=== PATIENT | female | born 1995 | race Caucasian/White ===

== ENCOUNTER 2017-05-15 21:55 | Inpatient (IN) | payer OTHER ==
[2017-05-15 22:08] VITALS: BMI 16.9
--- NOTE | 2017-05-15 22:17 | PDOC ---
History of Present Illness - General Chief Complaint: Pain, Acute Stated Complaint: STOMACH PAIN TO BACK WITH NAUSEA Time Seen by Provider: 05/15/17 22:17 History Source: Patient Exam Limitations: No Limitations - History of Present Illness Initial Comments: 05/15/17 23:01 22 yo female with on again off again stomach pains, spent a week in bed because of this, seemed to get better and now today she is hurting again, feels like she has a knife in her stomach. Timing/Duration: getting worse, changing over time, intermittent, other ( Several Weeks) Severity: mild Modifying Factors: worse with: cold therapy, eating, immobilization, medication , movement, rest, other Associated Symptoms: denies: denies symptoms, chest pain, cough, diaphoresis, fever/chills, headaches, loss of appetite, malaise, nausea/vomiting, rash, seizure, shortness of breath, syncope, weakness, other Past History - Past Medical History Allergies/Adverse Reactions: Allergies Allergy/AdvReac Type Severity Reaction Status Date / Time No Known Allergies Allergy Unverified 05/15/17 21:58 Home Medications: Ambulatory Orders NK [No Known Home Medication] 05/15/17 COPD: No Other medical history: DENIES - Suicide/Smoking/Psychosocial Hx Smoking History: Never smoked Information on smoking cessation initiated: No Hx Alcohol Use: No Drug/Substance Use Hx: No Substance Use Type: None Review of Systems - Review of Systems Constitutional: Yes: See HPI HEENTM: No: Symptoms Reported Respiratory: No: Symptoms reported Cardiac (ROS): No: Lightheadedness ABD/GI: Yes: See HPI : No: Symptoms Reported Musculoskeletal: No: Symptoms Reported Integumentary: No: Symptoms Reported Neurological: No: Symptoms reported Psychiatric: No: Anxiety, Depression Endocrine: No: Symptoms Reported Hematologic/Lymphatic: No: Symptoms Reported All Other Systems: Reviewed and Negative *Physical Exam - Vital Signs Last Vital Signs Temp Pulse Resp BP Pulse Ox 98.5 F 50 L 16 92/56 100 05/15/17 21:58 05/15/17 21:58 05/15/17 21:58 05/15/17 21:58 05/15/17 21:58 - Physical Exam Comments: 05/15/17 23:03 Very thin, appears uncomfortable, non-toxic General Appearance: Yes: Nourished, Appropriately Dressed. No: Apparent Distress HEENT: positive: EOMI, PETERSON, Normal ENT Inspection Neck: positive: Supple. negative: Tender Respiratory/Chest: positive: Lungs Clear, Normal Breath Sounds. negative: Chest Tender Cardiovascular: positive: Regular Rhythm, Regular Rate. negative: Murmur Female Pelvic Exam: positive: other (deferred) Gastrointestinal/Abdominal: positive: Normal Bowel Sounds, Flat, Soft. 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 negative: Normal Mood/Affect ED Treatment Course - LABORATORY CBC & Chemistry Diagram: 05/15/17 22:50 05/15/17 22:50 Medical Decision Making - Medical Decision Making 05/16/17 03:18 CT shows pericholecystic fluid but no stones and no GB Wall thickening. US does not shed any additional light on the situation. Will give IV Levaquin and Flagyl and admit for further work up and possible surgical consultation *DC/Admit/Observation/Transfer Diagnosis at time of Disposition: Elevated liver enzymes Abdominal pain Qualifiers: Abdominal location: generalized Qualified Code(s): R10.84 - Generalized abdominal pain Ascites Qualifiers: Ascites type: other type Qualified Code(s): R18.8 - Other ascites - Discharge Dispostion Condition at time of disposition: Fair Admit: Yes - Referrals - Patient Instructions - Post Discharge Activity
[2017-05-15] MEDS ORDERED: ONDANSETRON 4 MG/2 ML VIAL IVPB ONE (22:34)
[2017-05-15] MEDS ORDERED: SODIUM CHLORIDE 1,000 ML IV STA ×2 (22:34→22:36)
[2017-05-15] MEDS ORDERED: KETOROLAC TROMETHAMINE 30 MG/1 ML VIAL IVPUSH ONE (22:34)
[2017-05-15 23:02] LABS: BASO % 1.1 % (0-2.0); EOS % 0.2 % (0-4.5); MCH 29.8 pg (25.7-33.7); MCHC 33.6 g/dl (32.0-36.0); MEAN CELL VOLUME 88.6 fl (80-96); MEAN PLT VOLUME 9.6 fl (7.5-11.1); NEUT % 70.5 % (42.8-82.8); PLATELET COUNT 178 K/MM3 (134-434); RDW 14.8 % (11.6-15.6); WHITE BLOOD COUNT 5.6 K/mm3 (4.0-10.8)
[2017-05-15 23:07] LABS: INR 1.05 (0.82-1.09); PROTHROMBIN TIME (PATIENT) 11.7 SEC (10.2-13.0)
[2017-05-15] MEDS ORDERED: ONDANSETRON 4 MG/2 ML VIAL ONE (23:09)
[2017-05-15] MEDS ORDERED: KETOROLAC TROMETHAMINE 30 MG/1 ML VIAL ONE (23:09)
[2017-05-15 23:15] LABS: ALBUMIN 4.4 g/dl (3.5-5.0); ALK PHOS 125 U/L (32-92); ANION GAP 5 (8-16); CALCIUM 9.7 mg/dl (8.4-10.2); CO2 28 mmol/L (22-28); CREATININE 0.7 mg/dl (0.6-1.3); GLUCOSE,RANDOM 87 mg/dl (74-106); SGOT/AST 224 U/L (10-42); SGPT/ALT 280 U/L (10-40)
[2017-05-16] MEDS ORDERED: LEVOFLOXACIN 750 MG IVPB 750 MG/150 ML BAG IVPB ONE ×2 (03:17→03:24)
[2017-05-16] MEDS ORDERED: METRONIDAZOLE 500 MG PREMIXED 500 MG/100 ML MG IVPB ONE ×2 (03:18→03:24)
[2017-05-16] MEDS ORDERED: SODIUM CHLORIDE 1,000 ML IV STA (03:48)
[2017-05-16] MEDS ORDERED: ONDANSETRON 4 MG/2 ML VIAL IVPUSH ONE (03:48)
[2017-05-16] MEDS ORDERED: morphine CARPU-JECT 4 MG/1 ML DISP.SYRIN IVPUSH ONE (03:48)
[2017-05-16] MEDS ORDERED: ONDANSETRON 4 MG/2 ML VIAL ONE (03:56)
[2017-05-16] MEDS ORDERED: morphine SULFATE 4 MG/ML VIAL ONE (03:56)
[2017-05-16 09:25] LABS: MAGNESIUM 1.8 mg/dL (1.8-2.4); PHOSPHOROUS 3.5 mg/dl (2.5-4.6)
[2017-05-16 09:52] LABS: BASO % 0.7 % (0-2.0); EOS % 0.3 % (0-4.5); MCH 31.2 pg (25.7-33.7); MCHC 34.9 g/dl (32.0-36.0); MEAN CELL VOLUME 89.2 fl (80-96); MEAN PLT VOLUME 10.1 fl (7.5-11.1); NEUT % 54.6 % (42.8-82.8); PLATELET COUNT 156 K/MM3 (134-434); RDW 14.3 % (11.6-15.6); WHITE BLOOD COUNT 4.9 K/mm3 (4.0-10.8)
[2017-05-16] MEDS ORDERED: MAGNESIUM SULFATE 2 GM in SODIUM CHLORIDE 100 ML IVPB ONE (10:02)
--- NOTE | 2017-05-16 10:07 | HP ---
CHIEF COMPLAINT: right upper quadrant abdominal pain PCP: Dr Sargent ([facility]) HISTORY OF PRESENT ILLNESS: patient is a 22 y/o female with no significant past medical history. Patient reports abdominal pain, nausea and vomiting for the past week. Patient was evaluated by her primary care physician, Dr Sargent this week, hepatitis profile was negative as per patient. She was diagnosed with gastroenteritis. Patient reports attempting a clear liquid diet, however, nausea and vomiting worsened within the past 24 hours as result she sought evaluation in the emergency department. ER course was notable for: (1) ultrasound of abdomen: trace ascites (2) ct scan of abdomen small amount of ascities, heterogenous liver may be related to ascities (3) ast/alt 224/280 Recent Travel: none PAST MEDICAL HISTORY: none PAST SURGICAL HISTORY: none Social History: steno typist art history major Smoking: none Alcohol:none Drugs: none Family History: mother: gallstones, cholestectomy, alive and well father: alive and well sisters (2) migraine headaches Allergies No Known Allergies Allergy (Unverified 05/15/17 21:58) HOME MEDICATIONS: Home Medications Medication Instructions Recorded NK [No Known Home Medication] 05/15/17 REVIEW OF SYSTEMS CONSTITUTIONAL: Absent: fever, chills, diaphoresis, generalized weakness, malaise, loss of appetite, weight change HEENT: Absent: rhinorrhea, nasal congestion, throat pain, throat swelling, difficulty swallowing, mouth swelling, ear pain, eye pain, visual changes CARDIOVASCULAR: Absent: chest pain, syncope, palpitations, irregular heart rate, lightheadedness , peripheral edema RESPIRATORY: Absent: cough, shortness of breath, dyspnea with exertion, orthopnea, wheezing, stridor, hemoptysis GASTROINTESTINAL: present: abdominal pain, nausea, vomiting Absent: abdominal distension, diarrhea, constipation, melena, hematochezia GENITOURINARY: Absent: dysuria, frequency, urgency, hesitancy, hematuria, flank pain, genital pain MUSCULOSKELETAL: Absent: myalgia, arthralgia, joint swelling, back pain, neck pain SKIN: Absent: rash, itching, pallor HEMATOLOGIC/IMMUNOLOGIC: Absent: easy bleeding, easy bruising, lymphadenopathy, frequent infections ENDOCRINE: Absent: unexplained weight gain, unexplained weight loss, heat intolerance, cold intolerance NEUROLOGIC: Absent: headache, focal weakness or paresthesias, dizziness, unsteady gait, seizure, mental status changes, bladder or bowel incontinence PSYCHIATRIC: Absent: anxiety, depression, suicidal or homicidal ideation, hallucinations. PHYSICAL EXAMINATION Vital Signs - 24 hr 05/15/17 05/15/17 05/15/17 21:58 22:55 23:00 Temperature 98.5 F Pulse Rate 50 L Pulse Rate [ 50 L 39 L Left Radial] Respiratory 16 12 12 Rate Blood Pressure 92/56 Blood Pressure 89/51 93/59 [Left Arm] O2 Sat by Pulse 100 100 100 Oximetry (%) 05/15/17 05/16/17 05/16/17 23:22 04:40 04:45 Temperature Pulse Rate Pulse Rate [ 40 L 47 L Left Radial] Respiratory 14 14 18 Rate Blood Pressure Blood Pressure 105/70 92/52 [Left Arm] O2 Sat by Pulse 2 L 97 97 Oximetry (%) 05/16/17 05:07 Temperature 98.5 F Pulse Rate 41 L Pulse Rate [ Left Radial] Respiratory 18 Rate Blood Pressure 90/56 Blood Pressure [Left Arm] O2 Sat by Pulse Oximetry (%) GENERAL: Awake, alert, and fully oriented, in no acute distress. HEAD: Normal with no signs of trauma. EYES: Pupils equal, round and reactive to light, extraocular movements intact, sclera anicteric, conjunctiva clear. No lid lag. EARS, NOSE, THROAT: Ears normal, nares patent, oropharynx clear without exudates. dry mucous membranes. NECK: Normal range of motion, supple without lymphadenopathy, JVD, or masses. LUNGS: Breath sounds equal, clear to auscultation bilaterally. No wheezes, and no crackles. No accessory muscle use. HEART: Regular rate and rhythm, normal S1 and S2 without murmur, rub or gallop. ABDOMEN: Soft, + boland's sign, not distended, normoactive bowel sounds, no guarding, no masses. + hepatomegaly, no splenomegaly. MUSCULOSKELETAL: Normal range of motion at all joints. No bony deformities or tenderness. No CVA tenderness. UPPER EXTREMITIES: 2+ pulses, warm, well-perfused. No cyanosis. No clubbing. No peripheral edema. LOWER EXTREMITIES: 2+ pulses, warm, well-perfused. No calf tenderness. No peripheral edema. NEUROLOGICAL: Cranial nerves II-XII intact. Normal speech. Normal gait. PSYCHIATRIC: Cooperative. Good eye contact. Appropriate mood and affect. SKIN: Warm, dry, normal turgor, no rashes or lesions noted, normal capillary refill. Laboratory Results - last 24 hr 05/15/17 05/15/17 05/15/17 22:50 22:50 22:50 WBC 5.6 RBC 4.87 Hgb 14.5 Hct 43.1 MCV 88.6 MCH 29.8 MCHC 33.6 RDW 14.8 Plt Count 178 MPV 9.6 Neutrophils % 70.5 Lymphocytes % 22.9 Monocytes % 5.3 Eosinophils % 0.2 Basophils % 1.1 PT with INR 11.7 INR 1.05 Sodium Potassium Chloride Carbon Dioxide Anion Gap BUN Creatinine Creat Clearance w eGFR Random Glucose Calcium Phosphorus Magnesium Total Bilirubin AST ALT Alkaline Phosphatase Total Protein Albumin Lipase Serum , Qual Negative 05/15/17 05/16/17 05/16/17 22:50 08:30 08:30 WBC 4.9 RBC 4.20 Hgb 13.1 Hct 37.5 MCV 89.2 MCH 31.2 MCHC 34.9 RDW 14.3 Plt Count 156 MPV 10.1 Neutrophils % 54.6 D Lymphocytes % 38.5 D Monocytes % 5.9 Eosinophils % 0.3 Basophils % 0.7 PT with INR INR Sodium 138 Potassium 4.0 Chloride 105 Carbon Dioxide 28 Anion Gap 5 L BUN 8 Creatinine 0.7 Creat Clearance w eGFR > 60 Random Glucose 87 Calcium 9.7 Phosphorus 3.5 Magnesium 1.8 Total Bilirubin 2.0 H AST 224 H ALT 280 H Alkaline Phosphatase 125 H Total Protein 7.0 Albumin 4.4 Lipase 26 Serum , Qual ASSESSMENT/PLAN: 1) GI transanimitis - + murphys sign on exam, ct scan of abd/pelvis and ultrasound reviewed, will order MRCP r/o acute henry or choleductolithasis - trend lft's, pending hepatitis panel - appreciate GI input, Dr Lemus - prselina morphine for pain - npo-->ivf f/e/n - npo-->ivf d5ns w/20meq kci @75ml/hr - replete magnesium ppx - scd - pepcid - oob dispo: requires observation admission Visit type - Emergency Visit Emergency Visit: Yes ED Registration Date: 05/16/17 Care time: The patient presented to the Emergency Department on the above date and was hospitalized for further evaluation of their emergent condition. - New Patient This patient is new to me today: Yes Date on this admission: 05/16/17 - Critical Care Critical Care patient: No
[2017-05-16 10:10] LABS: URINE APPEARANCE Clear; URINE BILIRUBIN Negative (NEGATIVE); URINE BLOOD Negative (NEGATIVE); URINE COLOR YELLOW; URINE GLUCOSE (UA) Negative (NEGATIVE); URINE KETONE Negative (NEGATIVE); URINE LEUK ESTERASE Negative (NEGATIVE); URINE NITRITE Negative (NEGATIVE); URINE PROTEIN Negative (NEGATIVE); URINE UROBILINOGEN 0.2 (0.2-1.0)
[2017-05-16] MEDS: D5-NS + 20 MEQ KCL - 20 MEQ/1,000 ML INFUS.BAG IV SCH (10:32)
[2017-05-16] MEDS ORDERED: MAGNESIUM SULF 50% (8.12 MEQ/2 ML-1 GM VIAL) IVPB ONE (10:45)
[2017-05-16] MEDS ORDERED: METRONIDAZOLE 500 MG PREMIXED 500 MG/100 ML MG IVPB SCH ×2 (11:00→18:00)
[2017-05-16] MEDS ORDERED: KETOROLAC TROMETHAMINE 30 MG/1 ML VIAL IVPUSH ONE (13:30)
[2017-05-16 13:43] LABS: ALBUMIN 3.4 g/dl (3.5-5.0); ALK PHOS 96 U/L (32-92); AMYLASE 41 U/L (25-125); ANION GAP 8 (8-16); BILIRUBIN,DIRECT 0.4 mg/dL (0.0-0.3); BILIRUBIN,TOTAL 1.4 mg/dl (0.2-1.0); CALCIUM 8.8 mg/dl (8.4-10.2); CO2 21 mmol/L (22-28); CREATININE 0.8 mg/dl (0.6-1.3); GLUCOSE,RANDOM 73 mg/dl (74-106); SGOT/AST 123 U/L (10-42); SGPT/ALT 211 U/L (10-40); TOT PROT 5.5 g/dl (6.4-8.3)
--- NOTE | 2017-05-16 16:19 | CON.GI ---
Consult Consult Specialty:: GI Reason for Consultation:: abdominal pain and elevetad liver enzymes - History of Present Illness History of Present Illness: A 22 yof, healthy, on control and vitamins and occasional NSIDs, presents with 2 weeks history of epigastric, radiating to the back abdominal pain. No alleviating, or aggravating factors such as diet, activities, fasting. The pain was associated with nausea but no fever, jaundice, vomiting, or diarrhea. Seen by PCP 1 week ago and noted to have ALT 209, x2 AST and ALP with normal bili, CBC and electrolytes. The abdominal symptoms were improving until yesterday, when she developed acute, postprandial, sharp, stabbing epigastric pain with nausea w/o vomiting lasting for an hour. In ED she was found to have negative B- HCG, normal lipase, CBC, electrolytes, normal biliary system on US and CT w/o contrast showing signs of possible "hepatitis", cholestatic with mild hepatitis pattern on liver chemistry. No history of OTC, herbal supplements, ETOH, street drugs, or risks for viral hepatitis. No family history of autoimmune, genetic hepatitis. - History Source History Provided By: Patient, Medical Record (05/10/17 - PCP's office blood work) Limitations to Obtaining History: No Limitations - Alcohol/Substance Use Hx Alcohol Use: No - Smoking History Smoking history: Never smoked Home Medications - Allergies Allergies/Adverse Reactions: Allergies Allergy/AdvReac Type Severity Reaction Status Date / Time No Known Allergies Allergy Unverified 05/15/17 21:58 - Home Medications Home Medications: Ambulatory Orders NK [No Known Home Medication] 05/15/17 Home Medications (free text): control, vitamins, biotin Family Disease History - Family Disease History Family Disease History: Other: Mother (gallstones ) Review of Systems Findings/Remarks: please refer to H&P and HPI Physical Exam-GI Vital Signs: Vital Signs Temperature 98.5 F 05/16/17 14:33 Pulse Rate 42 L 05/16/17 14:33 Respiratory Rate 16 05/16/17 14:33 Blood Pressure 100/53 05/16/17 14:33 O2 Sat by Pulse Oximetry (%) 98 05/16/17 14:33 Constitutional: Yes: No Distress, Calm, Thin Eyes: Yes: Conjunctiva Clear HENT: Yes: Atraumatic Neck: Yes: Supple Cardiovascular: Yes: Regular Rate and Rhythm Respiratory: Yes: Regular ...Auscultate: Yes: Normoactive Bowel Sounds ...Palpate: Yes: Soft. No: Firm/Rigid, Guarding, Mass, Pulsatile Mass, Tenderness, Tenderness, Rebound Edema: No Integumentary: No: Jaundice, Rash Neurological: Yes: Alert, Oriented Psychiatric: Yes: Alert, Oriented Labs: CBC, BMP 05/16/17 08:30 05/16/17 08:40 INR, PTT INR 1.05 (0.82-1.09) 05/15/17 22:50 Laboratory Tests 05/15/17 05/15/17 05/15/17 22:50 22:50 22:50 WBC 5.6 RBC 4.87 Hgb 14.5 Hct 43.1 MCV 88.6 MCH 29.8 MCHC 33.6 RDW 14.8 Plt Count 178 MPV 9.6 Neutrophils % 70.5 Lymphocytes % 22.9 Monocytes % 5.3 Eosinophils % 0.2 Basophils % 1.1 PT with INR 11.7 INR 1.05 Sodium Potassium Chloride Carbon Dioxide Anion Gap BUN Creatinine Creat Clearance w eGFR Random Glucose Calcium Phosphorus Magnesium Total Bilirubin Direct Bilirubin AST ALT Alkaline Phosphatase Total Protein Albumin Total Amylase Lipase Serum , Qual Negative Urine Color Urine Appearance Urine pH Ur Specific Stone Urine Protein Urine Glucose (UA) Urine Ketones Urine Blood Urine Nitrite Urine Bilirubin Urine Urobilinogen Ur Leukocyte Esterase 05/15/17 05/16/17 05/16/17 22:50 08:20 08:30 WBC 4.9 RBC 4.20 Hgb 13.1 Hct 37.5 MCV 89.2 MCH 31.2 MCHC 34.9 RDW 14.3 Plt Count 156 MPV 10.1 Neutrophils % 54.6 D Lymphocytes % 38.5 D Monocytes % 5.9 Eosinophils % 0.3 Basophils % 0.7 PT with INR INR Sodium 138 Potassium 4.0 Chloride 105 Carbon Dioxide 28 Anion Gap 5 L BUN 8 Creatinine 0.7 Creat Clearance w eGFR > 60 Random Glucose 87 Calcium 9.7 Phosphorus Magnesium Total Bilirubin 2.0 H Direct Bilirubin AST 224 H ALT 280 H Alkaline Phosphatase 125 H Total Protein 7.0 Albumin 4.4 Total Amylase Lipase 26 Serum , Qual Urine Color Yellow Urine Appearance Clear Urine pH 7.0 Ur Specific Stone 1.015 Urine Protein Negative Urine Glucose (UA) Negative Urine Ketones Negative Urine Blood Negative Urine Nitrite Negative Urine Bilirubin Negative Urine Urobilinogen 0.2 Ur Leukocyte Esterase Negative 05/16/17 05/16/17 08:30 08:40 WBC RBC Hgb Hct MCV MCH MCHC RDW Plt Count MPV Neutrophils % Lymphocytes % Monocytes % Eosinophils % Basophils % PT with INR INR Sodium 135 L Potassium 3.9 Chloride 106 Carbon Dioxide 21 L D Anion Gap 8 BUN 6 L D Creatinine 0.8 Creat Clearance w eGFR > 60 Random Glucose 73 L Calcium 8.8 Phosphorus 3.5 Magnesium 1.8 Total Bilirubin 1.4 H D Direct Bilirubin 0.4 H AST 123 H D ALT 211 H D Alkaline Phosphatase 96 H D Total Protein 5.5 L D Albumin 3.4 L D Total Amylase 41 Lipase 21 L Serum , Qual Urine Color Urine Appearance Urine pH Ur Specific Stone Urine Protein Urine Glucose (UA) Urine Ketones Urine Blood Urine Nitrite Urine Bilirubin Urine Urobilinogen Ur Leukocyte Esterase Imaging - Results Cat Scan: Report Reviewed Ultrasound: Report Reviewed MRI: Pending Problem List - Problems (1) Abdominal pain Code(s): R10.9 - UNSPECIFIED ABDOMINAL PAIN Qualifiers: Abdominal location: generalized Qualified Code(s): R10.84 - Generalized abdominal pain (2) Elevated liver enzymes Code(s): R74.8 - ABNORMAL LEVELS OF OTHER SERUM ENZYMES (3) Cholestasis Code(s): K83.1 - OBSTRUCTION OF BILE DUCT Assessment/Plan A 22 yo healthy patient with abdominal symptoms x 2 weeks and hepatitis with choelstatic liver chemistry. Clinically improved. Enzymes, Bili, ALP trending down. No significant GI/biliary findings. MRCP discussed with radiologist, formal report pending. No obvious filling defects. Suspect passed gallstone. OK to stop ABx Soft, fat and dairy-free diet CBC, CMP, dir. bili in am. Follow viral serology. Obtain celiac serology, autoimmune liver work and EGD up as OP. Avoid NSAIDs PPI daily x 4 weeks. Discussed with the patient and her father
[2017-05-16] MEDS: PANTOPRAZOLE 40 MG TABLET (FP) PO SCH (18:18)
[2017-05-16] MEDS: ONDANSETRON 4 MG/2 ML VIAL IVPUSH PRN (22:04)
[2017-05-16] MEDS ORDERED: diphenhydrAMINE HCL 25 MG CAPSULE (FP) PO ONE (22:08)
[2017-05-17 08:54] LABS: BASO % 0.7 % (0-2.0); EOS % 1.1 % (0-4.5); MCH 30.4 pg (25.7-33.7); MCHC 34.2 g/dl (32.0-36.0); MEAN CELL VOLUME 88.9 fl (80-96); MEAN PLT VOLUME 9.9 fl (7.5-11.1); PLATELET COUNT 157 K/MM3 (134-434); RDW 14.4 % (11.6-15.6); WHITE BLOOD COUNT 3.5 K/mm3 (4.0-10.8)
[2017-05-17 09:00] LABS: ALBUMIN 3.3 g/dl (3.5-5.0); ALK PHOS 80 U/L (32-92); ANION GAP 3 (8-16); BILIRUBIN,DIRECT 0.2 mg/dL (0.0-0.3); BILIRUBIN,TOTAL 0.9 mg/dl (0.2-1.0); CALCIUM 8.7 mg/dl (8.4-10.2); CO2 25 mmol/L (22-28); CREATININE 0.8 mg/dl (0.6-1.3); GLUCOSE,RANDOM 105 mg/dl (74-106); SGOT/AST 54 U/L (10-42); SGPT/ALT 151 U/L (10-40); TOT PROT 5.6 g/dl (6.4-8.3)
[2017-05-17] MEDS: PANTOPRAZOLE 40 MG TABLET (FP) PO SCH (09:33)
[2017-05-17] MEDS: ONDANSETRON 4 MG/2 ML VIAL IVPUSH PRN (09:33)
[2017-05-17] MEDS: D5-NS + 20 MEQ KCL - 20 MEQ/1,000 ML INFUS.BAG IV SCH (09:35)
--- NOTE | 2017-05-17 12:57 | DS ---
Physical Exam: SUBJECTIVE: Patient seen and examined, reports ongoing pain to the right upper OBJECTIVE: Vital Signs Period Temp Pulse Resp BP Sys/Yi Pulse Ox Last 24 Hr 97.1 F-98.5 F 42-53 16-16 90-100/51-60 98-100 PHYSICAL EXAM GENERAL: The patient is awake, alert, and fully oriented, in no acute distress. HEAD: Normal with no signs of trauma. EYES: PERRL, extraocular movements intact, sclera anicteric, conjunctiva clear. ENT: Ears normal, nares patent, oropharynx clear without exudates, moist mucous membranes. NECK: Trachea midline, full range of motion, supple. LUNGS: Breath sounds equal, clear to auscultation bilaterally, no wheezes, no crackles, no accessory muscle use. HEART: Regular rate and rhythm, S1, S2 without murmur, rub or gallop. ABDOMEN: Soft, nontender, nondistended, normoactive bowel sounds, no guarding, no rebound, no hepatosplenomegaly, no masses. EXTREMITIES: 2+ pulses, warm, well-perfused, no edema. NEUROLOGICAL: Cranial nerves II through XII grossly intact. Normal speech, gait not observed. PSYCH: Normal mood, normal affect. SKIN: Warm, dry, normal turgor, no rashes or lesions noted. LABS Laboratory Results - last 24 hr 05/16/17 05/16/17 05/17/17 08:30 08:40 07:00 WBC 3.5 L RBC 4.33 Hgb 13.2 Hct 38.5 MCV 88.9 MCH 30.4 MCHC 34.2 RDW 14.4 Plt Count 157 MPV 9.9 Neutrophils % 55.0 Lymphocytes % 31.7 Monocytes % 11.5 H D Eosinophils % 1.1 D Basophils % 0.7 Sodium 135 L Potassium 3.9 Chloride 106 Carbon Dioxide 21 L D Anion Gap 8 BUN 6 L D Creatinine 0.8 Creat Clearance w eGFR > 60 Random Glucose 73 L Calcium 8.8 Total Bilirubin 1.4 H D Direct Bilirubin 0.4 H AST 123 H D ALT 211 H D Alkaline Phosphatase 96 H D Total Protein 5.5 L D Albumin 3.4 L D Total Amylase 41 Lipase 21 L Hepatitis A IgM Ab Negative Hep Bs Antigen Negative Hep B Core IgM Ab Negative Hepatitis C Ab (EIA) 0.2 05/17/17 07:00 WBC RBC Hgb Hct MCV MCH MCHC RDW Plt Count MPV Neutrophils % Lymphocytes % Monocytes % Eosinophils % Basophils % Sodium 136 Potassium 4.5 Chloride 108 H Carbon Dioxide 25 Anion Gap 3 L BUN 4 L D Creatinine 0.8 Creat Clearance w eGFR > 60 Random Glucose 105 D Calcium 8.7 Total Bilirubin 0.9 D Direct Bilirubin 0.2 D AST 54 H D ALT 151 H D Alkaline Phosphatase 80 Total Protein 5.6 L Albumin 3.3 L Total Amylase Lipase Hepatitis A IgM Ab Hep Bs Antigen Hep B Core IgM Ab Hepatitis C Ab (EIA) HOSPITAL COURSE: Date of Admission:05/16/17 Date of Discharge: 05/17/17 Minutes to complete discharge: 45 Discharge Summary Reason For Visit: ABD. PAIN/ELEVATED LEVER ENZYMES/ ASCITES Current Active Problems Abdominal pain (Acute) Ascites (Acute) Cholestasis (Acute) Elevated liver enzymes (Acute) Condition: Fair - Instructions - Home Medications Comprehensive Discharge Medication List: Ambulatory Orders NK [No Known Home Medication] 05/15/17
--- NOTE | 2017-05-17 13:36 | PN ---
Progress Note, Physician History of Present Illness: Final MRCP result noted. Needs ERCP. Cannot be done at [facility] today, pt ws not NPO and we don't have ERCP after hours, or weekend call team. Transfer to [facility] ERCP today is in progress - Current Medication List Current Medications: Active Medications Dextrose/Sodium Chloride (Dextrose 5%-Normal Saline+20 Meq Kcl -) 20 meq in 1, 000 mls @ 75 mls/hr IV ASDIR [facility] Last Admin: 05/17/17 09:35 Dose: 75 mls/hr Morphine Sulfate (Morphine Sulfate) 2 mg IVPUSH Q4H PRN PRN Reason: PAIN Ondansetron HCl (Zofran Injection) 4 mg IVPUSH Q6H PRN PRN Reason: NAUSEA Last Admin: 05/17/17 09:33 Dose: 4 mg Pantoprazole Sodium (Protonix -) 40 mg PO DAILY [facility] Last Admin: 05/17/17 09:33 Dose: 40 mg - Objective Vital Signs: Vital Signs Temperature 97.1 F L 05/17/17 05:25 Pulse Rate 48 L 05/17/17 05:25 Respiratory Rate 16 05/17/17 05:25 Blood Pressure 90/57 05/17/17 05:25 O2 Sat by Pulse Oximetry (%) 100 05/17/17 04:00 Labs: CBC, BMP 05/17/17 07:00 05/17/17 07:00 INR, PTT INR 1.05 (0.82-1.09) 05/15/17 22:50 Problem List - Problems (1) Abdominal pain Code(s): R10.9 - UNSPECIFIED ABDOMINAL PAIN Qualifiers: Abdominal location: generalized Qualified Code(s): R10.84 - Generalized abdominal pain (2) Elevated liver enzymes Code(s): R74.8 - ABNORMAL LEVELS OF OTHER SERUM ENZYMES (3) Cholestasis Code(s): K83.1 - OBSTRUCTION OF BILE DUCT
[2017-05-17] MEDS: morphine SULFATE 4 MG/ML VIAL IVPUSH PRN ×2 (14:28→21:44)
--- NOTE | 2017-05-17 14:33 | PN ---
Physical Exam: SUBJECTIVE: Patient seen and examined, report right upper quadrant and nausea, denies any tactile fever OBJECTIVE: patient is a 22 y/o female no significant past medical history, patient was admitted from the emergency department for choleductholithasis Vital Signs Period Temp Pulse Resp BP Sys/Yi Pulse Ox Last 24 Hr 97.1 F-98.5 F 42-53 16-16 90-100/51-60 98-100 GENERAL: The patient is awake, alert, and fully oriented, in no acute distress. HEAD: Normal with no signs of trauma. EYES: PERRL, extraocular movements intact, sclera anicteric, conjunctiva clear. No ptosis. ENT: Ears normal, nares patent, oropharynx clear without exudates, moist mucous membranes. NECK: Trachea midline, full range of motion, supple. LUNGS: Breath sounds equal, clear to auscultation bilaterally, no wheezes, no crackles, no accessory muscle use. HEART: Regular rate and rhythm, S1, S2 without murmur, rub or gallop. ABDOMEN: Soft,+ boland's sign, nondistended, normoactive bowel sounds, no guarding, no rebound, no hepatosplenomegaly, no masses. EXTREMITIES: 2+ pulses, warm, well-perfused, no edema. NEUROLOGICAL: Cranial nerves II through XII grossly intact. Normal speech, gait not observed. PSYCH: Normal mood, normal affect. SKIN: Warm, dry, normal turgor, no rashes or lesions noted Laboratory Results - last 24 hr 05/16/17 05/17/17 05/17/17 08:30 07:00 07:00 WBC 3.5 L RBC 4.33 Hgb 13.2 Hct 38.5 MCV 88.9 MCH 30.4 MCHC 34.2 RDW 14.4 Plt Count 157 MPV 9.9 Neutrophils % 55.0 Lymphocytes % 31.7 Monocytes % 11.5 H D Eosinophils % 1.1 D Basophils % 0.7 Sodium 136 Potassium 4.5 Chloride 108 H Carbon Dioxide 25 Anion Gap 3 L BUN 4 L D Creatinine 0.8 Creat Clearance w eGFR > 60 Random Glucose 105 D Calcium 8.7 Total Bilirubin 0.9 D Direct Bilirubin 0.2 D AST 54 H D ALT 151 H D Alkaline Phosphatase 80 Total Protein 5.6 L Albumin 3.3 L Hepatitis A IgM Ab Negative Hep Bs Antigen Negative Hep B Core IgM Ab Negative Hepatitis C Ab (EIA) 0.2 Active Medications Generic Name Dose Route Start Last Admin Trade Name Freq PRN Reason Stop Dose Admin Dextrose/Sodium Chloride 20 meq in 1,000 mls @ 75 mls/hr 05/16/17 10:15 05/17 09:35 Dextrose 5%-Normal Saline+20 Meq Kcl - IV 75 mls/hr ASDIR KARY Administration Morphine Sulfate 2 mg 05/16/17 04:46 05/17/17 14:28 Morphine Sulfate IVPUSH 2 mg Q4H PRN Administration PAIN Ondansetron HCl 4 mg 05/16/17 04:45 05/17/17 09:33 Zofran Injection IVPUSH 4 mg Q6H PRN Administration NAUSEA Pantoprazole Sodium 40 mg 05/16/17 17:15 05/17/17 09:33 Protonix - PO 40 mg DAILY KARY Administration IMAGING mrcp- dilated and intra and extra hepatic ducts, 0.3cm x 0.3cm filling defect of the distal common bile duct suspicous for choledocholelithasis ct scan of abd/pelvis: trace pericardial effusion, small amount of ascited periportal edema ASSESSMENT/PLAN: 1) GI choledocholelithasis - mrcp reviewed with Dr Lemus, GI, patient to be transferred to [facility] for emergent ERCP. - keep NPO-->IVF - no leukocytosis, patient is afebrile - continue prn morphine - liver enzymes trending downward continue to trend f/e/n - npo-->ivf - replete lytes prn ppx - protonix - scd/cyrus - oob - hold AC pending ercp dispo: pending transfer to [facility], pt requires inpatient admission. Visit type - Emergency Visit Emergency Visit: Yes ED Registration Date: 05/17/17 Care time: The patient presented to the Emergency Department on the above date and was hospitalized for further evaluation of their emergent condition. - New Patient This patient is new to me today: No - Critical Care Critical Care patient: No - Discharge Referral Referred to [facility] No
[2017-05-17] MEDS ORDERED: LEVOFLOXACIN 500 MG PREMIX BAG IVPB ONE (15:40)
[2017-05-17] MEDS ORDERED: INDOMETHACIN 50 MG RECTAL SUPPOSITORY PR ONE (16:15)
[2017-05-17] MEDS ORDERED: LIDOCAINE HCL/PF 2% SDV 5ML VIAL ONE (17:21)
[2017-05-17] MEDS ORDERED: ONDANSETRON 4 MG/2 ML VIAL ONE (17:22)
[2017-05-17] MEDS ORDERED: LEVOFLOXACIN 500 MG IVPB 500 MG/100 ML BAG IVPB ONE (17:32)
[2017-05-17] MEDS ORDERED: METRONIDAZOLE 500 MG PREMIXED 500 MG/100 ML MG IVPB ONE (17:34)
--- NOTE | 2017-05-17 17:34 | PN ---
Progress Note (short form) - Note Progress Note: GI Preprocedure NOte: I have discussed the indications for ERCP and it's potential complications including perforation, hemorrhage and pancreatitis leading to multiorgan failure, severe abdominal pain and vomiting with Chelsey and her father. I answered all of their questions after which she signed an informed consent. Antibiotics will be initiated and a Indocin suppository will be administered prior to the procedure. GI consultation has already be done by Dr Lemus who discussed the case with me earlier. Will proceed immediately with ERCP.
[2017-05-17] MEDS ORDERED: DEXAMETHASONE SOD PHOSPHATE 10 MG/1 ML VIAL ONE (17:35)
[2017-05-17] MEDS ORDERED: IOHEXOL 300 MG/ML INFUS..BTL IV ONE (18:45)
[2017-05-17] MEDS ORDERED: LACTATED RINGERS SOLUTION 1,000 ML IV SCH (19:15)
--- NOTE | 2017-05-17 19:22 | PN ---
Progress Note (short form) - Note Progress Note: GI Procedure NOte: Please see ERCP note: Please see scanned ERCP report. Two CBD stones were found.Because the papilla was tiny only a small sphincterotomy could be made whioch allowed removal of only the smaller of jamal stones. A biliary stent was tehrefore placed. The findings were discussed with her parents. Dr Garcias will be covering until the AM
[2017-05-17] MEDS ORDERED: LACTATED RINGERS SOLUTION 1,000 ML/1,000 ML INFUS.BAG IV SCH (19:30)
[2017-05-17] MEDS: METRONIDAZOLE 500 MG PREMIXED 500 MG/100 ML MG IVPB SCH (20:28)
[2017-05-17] MEDS: LEVOFLOXACIN 500 MG IVPB 500 MG/100 ML BAG IVPB SCH (20:28)
[2017-05-18] MEDS: LACTATED RINGERS SOLUTION 1,000 ML/1,000 ML INFUS.BAG IV SCH (00:11)
[2017-05-18] MEDS: HYDROmorphone HCL CARPU-JECT 2 MG/1 ML DISP.SYRIN IVPB PRN ×2 (00:18→10:55)
[2017-05-18] MEDS: METRONIDAZOLE 500 MG PREMIXED 500 MG/100 ML MG IVPB SCH ×3 (01:30→18:59)
[2017-05-18] MEDS: ONDANSETRON 4 MG/2 ML VIAL IVPUSH PRN (06:20)
[2017-05-18] MEDS: morphine SULFATE 4 MG/ML VIAL IVPUSH PRN (06:28)
[2017-05-18] MEDS ORDERED: LACTATED RINGERS SOLUTION 1,000 ML/1,000 ML INFUS.BAG IV SCH ×2 (06:30→12:30)
[2017-05-18 07:16] LABS: BASO % 0.3 % (0-2.0); EOS % 0.1 % (0-4.5); MCH 29.6 pg (25.7-33.7); MCHC 33.3 g/dl (32.0-36.0); MEAN PLT VOLUME 9.8 fl (7.5-11.1); NEUT % 76.3 % (42.8-82.8); PLATELET COUNT 182 K/MM3 (134-434); RDW 15.2 % (11.6-15.6); WHITE BLOOD COUNT 4.2 K/mm3 (4.0-10.0)
[2017-05-18 07:37] LABS: AMYLASE 163 U/L (25-115); C-REACTIVE PROTEIN < 0.3 MG/DL (0.00-0.3)
[2017-05-18 07:41] LABS: ALK PHOS 102 U/L (45-117); ANION GAP 8 (8-16); BILIRUBIN,DIRECT 0.3 mg/dL (0.0-0.2); BILIRUBIN,TOTAL 0.6 mg/dL (0.2-1.0); CALCIUM 8.9 mg/dL (8.5-10.1); CO2 27 mmol/L (21-32); CREATININE 0.8 mg/dL (0.55-1.02); GLUCOSE,RANDOM 102 mg/dL (74-106); SGOT/AST 74 U/L (15-37); SGPT/ALT 180 U/L (12-78); TOT PROT 5.5 g/dl (6.4-8.2)
[2017-05-18] MEDS: PANTOPRAZOLE 40 MG TABLET (FP) PO SCH (10:38)
--- NOTE | 2017-05-18 11:34 | PN ---
GI Progress Note Subjective: GI NOte: Has only mild epigastric pain and a sore throat. No nausea or vomiting. NO fever. Has mild lipase and amylase elevation but this is consistent with contrast injection and she does not appear to have pancreatitis clinically. Her mother is at the bedside. - Objective Vital Signs: Vital Signs Temperature 97.6 F 05/18/17 06:15 Pulse Rate 46 L 05/18/17 06:15 Respiratory Rate 18 05/18/17 06:15 Blood Pressure 95/51 05/18/17 06:15 O2 Sat by Pulse Oximetry (%) 100 05/18/17 04:00 Laboratory Tests 05/16/17 05/18/17 05/18/17 08:30 06:30 06:30 WBC 4.2 Total Bilirubin 0.6 Direct Bilirubin 0.3 H AST 74 H ALT 180 H Alkaline Phosphatase 102 C-Reactive Protein Total Amylase Lipase 1163 H Hepatitis A IgM Ab Negative Hep Bs Antigen Negative Hep B Core IgM Ab Negative Hepatitis C Ab (EIA) 0.2 05/18/17 06:30 WBC Total Bilirubin Direct Bilirubin AST ALT Alkaline Phosphatase C-Reactive Protein < 0.3 Total Amylase 163 H Lipase Hepatitis A IgM Ab Hep Bs Antigen Hep B Core IgM Ab Hepatitis C Ab (EIA) Constitutional: Calm ...Auscultate: Yes: Normoactive Bowel Sounds ...Palpate: Yes: Soft, Tenderness (mild epigastric) Labs: CBC, BMP 05/18/17 06:30 05/18/17 06:30 INR, PTT INR 1.05 (0.82-1.09) 05/15/17 22:50 Problem List - Problems (1) Choledocholithiasis with obstruction Assessment/Plan: Day 1 s/p ERCP with sphincterotomy, incomplete stone extractions and stent insertion. Does not appear to have pancreatitis and believe pain reflects ERCP manipulations. Will start clear liquids and switch to oral analgesics. Will also check heterophile and exclude other etiologies for hepatitis that can be done as an inpatient. Continue antibiotics. Advise surgical consultation for cholecystectomy. Code(s): K80.51 - CALCULUS OF BILE DUCT W/O CHOLANGITIS OR CHOLECYST W OBST Qualifiers: Cholecystitis presence: without cholecystitis Qualified Code(s): K80.51 - Calculus of bile duct without cholangitis or cholecystitis with obstruction
[2017-05-18] MEDS: LEVOFLOXACIN 500 MG IVPB 500 MG/100 ML BAG IVPB SCH (12:07)
[2017-05-18] MEDS: ACETAMINOPHEN 325 MG TABLET (FP) PO PRN (15:06)
[2017-05-18] MEDS ORDERED: HYDROmorphone HCL CARPU-JECT 2 MG/1 ML DISP.SYRIN IVPB ONE (17:36)
--- NOTE | 2017-05-18 18:05 | PN ---
Progress Note (short form) - Note Progress Note: Subjective: The patient was seen and examined at the bedside with her mother and father present. The patient is reporting abdominal cramping and specifically requesting IV dilaudid, stating IV morphine does not work for her. She is stating Tylenol is not helping her and does not want to take anything oral because she has not been able to drink from the cramping. Encouraged ambulation as the cramping may be from gas pain, the patient is refusing at this time stating she feels like something is ripping in her abdomen when she stands up. Current Medications Generic Name Dose Route Start Last Admin Trade Name Freq PRN Reason Stop Dose Admin Acetaminophen 325 mg 05/18/17 11:38 05/18/17 15:06 Tylenol - PO 325 mg Q4H PRN Administration FEVER OR PAIN Levofloxacin 500 mg in 100 mls @ 100 mls/hr 05/17/17 17:46 05/18/17 12:07 Levaquin 500 Mg Premixed Ivpb - IVPB 100 mls/hr DAILY KARY Administration Metronidazole 500 mg in 100 mls @ 100 mls/hr 05/17/17 18:00 05/18/17 10:35 Flagyl 500mg Premixed Ivpb - IVPB 100 mls/hr Q8H-IV KARY Administration Lactated Ringer's 1,000 ml in 1,000 mls @ 100 mls/hr 05/18/17 12:30 Lactated Ringers Solution IV ASDIR KARY Ondansetron HCl 4 mg 05/17/17 19:11 05/18/17 06:20 Zofran Injection IVPUSH 4 mg Q6H PRN Administration NAUSEA AND/OR VOMITING Pantoprazole Sodium 40 mg 05/16/17 17:15 05/18/17 10:38 Protonix - PO Not Given DAILY KARY Simethicone 80 mg 05/18/17 17:36 Mylicon - PO Q6H PRN GAS Objective: Vital Signs Period Temp Pulse Resp BP Sys/Yi Pulse Ox Last 24 Hr 97.6 F-98.0 F 36-54 12- 90-127/47-80 96-100 Physical Exam: General: NAD, A&Ox3 Abd: Soft, non-tender, non-distended. Normoactive bowel sounds Ext: Warm, well-perfused. 2+ DP/PT bilaterally CBCD WBC 4.2 K/mm3 (4.0-10.0) 05/18/17 06:30 RBC 4.47 M/mm3 (3.60-5.2) 05/18/17 06:30 Hgb 13.2 GM/dL (10.7-15.3) 05/18/17 06:30 Hct 39.8 % (32.4-45.2) 05/18/17 06:30 MCV 89.0 fl (80-96) 05/18/17 06:30 MCHC 33.3 g/dl (32.0-36.0) 05/18/17 06:30 RDW 15.2 % (11.6-15.6) 05/18/17 06:30 Plt Count 182 K/MM3 (134-434) 05/18/17 06:30 MPV 9.8 fl (7.5-11.1) 05/18/17 06:30 CMP Sodium 140 mmol/L (136-145) 05/18/17 06:30 Potassium 4.4 mmol/L (3.5-5.1) 05/18/17 06:30 Chloride 105 mmol/L (98-107) 05/18/17 06:30 Carbon Dioxide 27 mmol/L (21-32) 05/18/17 06:30 Anion Gap 8 (8-16) 05/18/17 06:30 BUN 5 mg/dL (7-18) L 05/18/17 06:30 Creatinine 0.8 mg/dL (0.55-1.02) 05/18/17 06:30 Creat Clearance w eGFR > 60 (>60) 05/18/17 06:30 Random Glucose 102 mg/dL (74-106) 05/18/17 06:30 Calcium 8.9 mg/dL (8.5-10.1) 05/18/17 06:30 Total Bilirubin 0.6 mg/dL (0.2-1.0) 05/18/17 06:30 AST 74 U/L (15-37) H 05/18/17 06:30 ALT 180 U/L (12-78) H 05/18/17 06:30 Alkaline Phosphatase 102 U/L (45-117) 05/18/17 06:30 Total Protein 5.5 g/dl (6.4-8.2) L 05/18/17 06:30 Albumin 3.0 g/dl (3.4-5.0) L 05/18/17 06:30 Microbiology 05/16/17 08:20 Urine - Urine Clean Catch Urine Culture - Final NO GROWTH OBTAINED Assessment: This is a 22 year old female with no significant PMHx who presented to the ED with nausea, vomiting, and abdominal pain x1 week. Plan: 1) Choledocholithiaisis with obstruction - ERCP performed yesterday: sphincterotomy with incomplete stone extractions and stent insertion - Today with elevated Lipase: per GI does not appear to have pancreatitis - Continue Levaquin - Continue Flagyl - Start clear liquid diet - Po Tylenol ordered - Pain medication: one dose of IV dilaudid - Heterophile ordered to exclude other etiologies for hepatitis - F/u surgical consult for cholecystectomy - Appreciate GI consult 2) Bradycardia - F/u EKG 3) F/E/N: - Monitor electrolytes - Clear liquid diet 4) Prophylaxis: - SCDs bilaterally - Encourage ambulation 5) Dispo: - Requires continued inpatient care CODE STATUS: FULL CODE Visit type - Emergency Visit Emergency Visit: Yes ED Registration Date: 05/17/17 Care time: The patient presented to the Emergency Department on the above date and was hospitalized for further evaluation of their emergent condition. - New Patient This patient is new to me today: Yes Date on this admission: 05/18/17 - Critical Care Critical Care patient: No
[2017-05-18] MEDS: SIMETHICONE 80 MG TAB.CHEW (FP) PO PRN (21:15)
[2017-05-19] MEDS: ACETAMINOPHEN 325 MG TABLET (FP) PO PRN ×2 (00:46→23:15)
[2017-05-19] MEDS: ONDANSETRON 4 MG/2 ML VIAL IVPUSH PRN (00:46)
[2017-05-19] MEDS: METRONIDAZOLE 500 MG PREMIXED 500 MG/100 ML MG IVPB SCH ×3 (02:55→17:30)
[2017-05-19] MEDS: LACTATED RINGERS SOLUTION 1,000 ML/1,000 ML INFUS.BAG IV SCH ×2 (06:19→13:35)
--- NOTE | 2017-05-19 07:47 | PN ---
Progress Note, Physician Chief Complaint: s/p ercp under general anesthesia History of Present Illness: post op day 2 - Current Medication List Current Medications: Active Medications Acetaminophen (Tylenol -) 325 mg PO Q4H PRN PRN Reason: FEVER OR PAIN Last Admin: 05/19/17 00:46 Dose: 325 mg Levofloxacin (Levaquin 500 Mg Premixed Ivpb -) 500 mg in 100 mls @ 100 mls/hr IVPB DAILY KARY Last Admin: 05/18/17 12:07 Dose: 100 mls/hr Metronidazole (Flagyl 500mg Premixed Ivpb -) 500 mg in 100 mls @ 100 mls/hr IVPB Q8H-IV KARY Last Admin: 05/19/17 02:55 Dose: 100 mls/hr Lactated Ringer's (Lactated Ringers Solution) 1,000 ml in 1,000 mls @ 100 mls/ hr IV ASDIR [facility] Last Admin: 05/19/17 06:19 Dose: 100 mls/hr Pantoprazole Sodium (Protonix -) 40 mg PO DAILY [facility] Last Admin: 05/18/17 10:38 Dose: Not Given Simethicone (Mylicon -) 80 mg PO Q6H PRN PRN Reason: GAS Last Admin: 05/18/17 21:15 Dose: 80 mg - Objective Vital Signs: Vital Signs Temperature 97.6 F 05/19/17 05:28 Pulse Rate 46 L 05/19/17 05:28 Respiratory Rate 18 05/19/17 05:28 Blood Pressure 98/60 05/19/17 05:28 O2 Sat by Pulse Oximetry (%) 100 05/19/17 02:00 Constitutional: Yes: Well Nourished Cardiovascular: Yes: WNL Respiratory: Yes: WNL Gastrointestinal: Yes: WNL Labs: CBC, BMP 05/18/17 06:30 05/18/17 06:30 INR, PTT INR 1.05 (0.82-1.09) 05/15/17 22:50 Assessment/Plan Patient complaining about persistent nausea, unlikely due to anesthesia as she had nausea prior to procedure. She is complaining about sore throat but is getting better with lozenges and fluids. No other adverse effect of anesthesia. Dept of anesthesia will sign off care at this time
[2017-05-19 08:12] LABS: BASO % 0.5 % (0-2.0); EOS % 0.8 % (0-4.5); MCH 29.2 pg (25.7-33.7); MCHC 33.2 g/dl (32.0-36.0); MEAN CELL VOLUME 88.2 fl (80-96); MEAN PLT VOLUME 9.4 fl (7.5-11.1); NEUT % 43.5 % (42.8-82.8); PLATELET COUNT 178 K/MM3 (134-434); WHITE BLOOD COUNT 4.3 K/mm3 (4.0-10.0)
[2017-05-19 08:42] LABS: ALBUMIN 3.3 g/dl (3.4-5.0); AMYLASE 201 U/L (25-115); ANION GAP 6 (8-16); CALCIUM 8.8 mg/dL (8.5-10.1); CO2 29 mmol/L (21-32); CREATININE 0.9 mg/dL (0.55-1.02); GLUCOSE,RANDOM 99 mg/dL (74-106); SGOT/AST 42 U/L (15-37); SGPT/ALT 137 U/L (12-78)
[2017-05-19 08:43] LABS: FERRITIN 40.057 ng/ml (6.9-282.5)
[2017-05-19 08:46] LABS: ALK PHOS 82 U/L (45-117); BILIRUBIN,TOTAL 0.5 mg/dL (0.2-1.0); C-REACTIVE PROTEIN < 0.3 MG/DL (0.00-0.3); TOT PROT 5.8 g/dl (6.4-8.2)
[2017-05-19] MEDS ORDERED: traMADol HCL 50 MG TABLET PO PRN (08:55)
[2017-05-19] MEDS ORDERED: PROCHLORPERAZINE INJECTION 10 MG/2 ML VIAL IVPB PRN (08:58)
--- NOTE | 2017-05-19 09:00 | PN ---
Physical Exam: SUBJECTIVE: Patient seen and examined Pt c/o persistent abdominal pain ( cramping/bloating) and nausea, denies vomiting, reports severe abdominal pain after clears. OBJECTIVE: Vital Signs Period Temp Pulse Resp BP Sys/Yi Pulse Ox Last 24 Hr 97.6 F-98.3 F 40-50 17-18 98-103/47-66 100-100 GENERAL: The patient is awake, alert, and fully oriented, in no acute distress. HEAD: Normal with no signs of trauma. EYES: PERRL, extraocular movements intact, sclera anicteric, conjunctiva clear. No ptosis. ENT: Ears normal, nares patent, oropharynx clear without exudates, moist mucous membranes. NECK: Trachea midline, full range of motion, supple. LUNGS: Breath sounds equal, clear to auscultation bilaterally, no wheezes, no crackles, no accessory muscle use. HEART: Regular rate and rhythm, S1, S2 without murmur, rub or gallop. ABDOMEN: Soft, + tenderness, nondistended, normoactive bowel sounds, no guarding , no rebound, no hepatosplenomegaly, no masses. EXTREMITIES: 2+ pulses, warm, well-perfused, no edema. NEUROLOGICAL: Cranial nerves II through XII grossly intact. Normal speech, gait not observed. PSYCH: Normal mood, normal affect. SKIN: Warm, dry, normal turgor, no rashes or lesions noted Laboratory Results - last 24 hr 05/19/17 05/19/17 07:00 07:00 WBC 4.3 RBC 4.41 Hgb 12.9 Hct 38.9 MCV 88.2 MCH 29.2 MCHC 33.2 RDW 15.0 Plt Count 178 MPV 9.4 Neutrophils % 43.5 D Lymphocytes % 48.2 H D Monocytes % 7.0 Eosinophils % 0.8 D Basophils % 0.5 Sodium 141 Potassium 3.8 Chloride 106 Carbon Dioxide 29 Anion Gap 6 L BUN 6 L Creatinine 0.9 Creat Clearance w eGFR > 60 Random Glucose 99 Calcium 8.8 Ferritin 40.057 Total Bilirubin 0.5 GGT 269 H AST 42 H D ALT 137 H D Alkaline Phosphatase 82 C-Reactive Protein < 0.3 Total Protein 5.8 L Albumin 3.3 L Total Amylase 201 H D Lipase 1021 H Active Medications Generic Name Dose Route Start Last Admin Trade Name Freq PRN Reason Stop Dose Admin Acetaminophen 325 mg 05/18/17 11:38 05/19/17 00:46 Tylenol - PO 325 mg Q4H PRN Administration FEVER OR PAIN Levofloxacin 500 mg in 100 mls @ 100 mls/hr 05/17/17 17:46 05/18/17 12:07 Levaquin 500 Mg Premixed Ivpb - IVPB 100 mls/hr DAILY KARY Administration Metronidazole 500 mg in 100 mls @ 100 mls/hr 05/17/17 18:00 05/19/17 02:55 Flagyl 500mg Premixed Ivpb - IVPB 100 mls/hr Q8H-IV KARY Administration Lactated Ringer's 1,000 ml in 1,000 mls @ 100 mls/hr 05/18/17 12:30 05/19/17 06:19 Lactated Ringers Solution IV 100 mls/hr ASDIR KARY Administration Pantoprazole Sodium 40 mg 05/16/17 17:15 05/18/17 10:38 Protonix - PO Not Given DAILY KARY Prochlorperazine Edisylate 5 mg 05/19/17 08:58 Compazine Injection - IVPB Q4H PRN NAUSEA AND/OR VOMITING Simethicone 80 mg 05/18/17 17:36 05/18/17 21:15 Mylicon - PO 80 mg Q6H PRN Administration GAS Tramadol HCl 50 mg 05/19/17 08:55 Ultram - PO Q6H PRN PAIN Microbiology 05/16/17 08:20 Urine - Urine Clean Catch Urine Culture - Final NO GROWTH OBTAINED ASSESSMENT/PLAN: This is a 22 year old female with no significant PMHx who presented to the ED with nausea, vomiting, and abdominal pain x1 week. * Choledocholithiaisis with obstruction - s/p ERCP sphincterotomy with incomplete stone extractions and stent insertion - started on Actigal - will continue antibiotics. Dr Lemus will return tomorrow. - plan cholecystectomy possibly tomorrow - sx following - on soft diet - pain management - lipase level trending down -celiac w/u in progress * Bradycardia- HR in 40's - asymptomatic -will check Thyroid function tests -EKG:SB * F/E/N: - Monitor electrolytes -advanced diet soft diet *Prophylaxis: - SCDs bilaterally - Encourage ambulation * Dispo: - Requires continued inpatient care CODE STATUS: FULL CODE Visit type - Emergency Visit Emergency Visit: Yes ED Registration Date: 05/17/17 Care time: The patient presented to the Emergency Department on the above date and was hospitalized for further evaluation of their emergent condition. - New Patient This patient is new to me today: Yes Date on this admission: 05/19/17 - Critical Care Critical Care patient: No
--- NOTE | 2017-05-19 09:33 | PN ---
GI Progress Note Subjective: GI Note (covering Dr Lemus) : Still having some epigastric pain but no vomiting or other evidence of pancreatitis. Will start soft diet and Actigall. Anticipate cholecystectomy to prevent new stone formation - Objective Vital Signs: Vital Signs Temperature 97.6 F 05/19/17 05:28 Pulse Rate 46 L 05/19/17 05:28 Respiratory Rate 18 05/19/17 05:28 Blood Pressure 98/60 05/19/17 05:28 O2 Sat by Pulse Oximetry (%) 100 05/19/17 02:00 Laboratory Tests 05/19/17 05/19/17 07:00 07:00 WBC 4.3 Hgb 12.9 Total Bilirubin 0.5 GGT 269 H AST 42 H D ALT 137 H D Alkaline Phosphatase 82 C-Reactive Protein < 0.3 Total Amylase 201 H D Lipase 1021 H Constitutional: Anxious ...Auscultate: Yes: Normoactive Bowel Sounds ...Palpate: Yes: Soft, Tenderness, Epigastium (mild) Labs: CBC, BMP 05/19/17 07:00 05/19/17 07:00 INR, PTT INR 1.05 (0.82-1.09) 05/15/17 22:50 Problem List - Problems (1) Choledocholithiasis with obstruction Assessment/Plan: day 2 s/p ERCP with sphincterotomy and stent insertion. Will start Actigal. Anticipate cholecystectomy. Continue antibiotics. Dr Lemus will return tomorrow. Code(s): K80.51 - CALCULUS OF BILE DUCT W/O CHOLANGITIS OR CHOLECYST W OBST Qualifiers: Cholecystitis presence: without cholecystitis Qualified Code(s): K80.51 - Calculus of bile duct without cholangitis or cholecystitis with obstruction
[2017-05-19] MEDS: LEVOFLOXACIN 500 MG IVPB 500 MG/100 ML BAG IVPB SCH (10:23)
[2017-05-19] MEDS: PANTOPRAZOLE 40 MG TABLET (FP) PO SCH (10:26)
[2017-05-19] MEDS: URSODIOL 300 MG CAPSULE PO SCH ×2 (10:26→23:17)
--- NOTE | 2017-05-19 10:37 | PN ---
Progress Note (short form) - Note Progress Note: Attending Surgeon Patient seen and evaluated; chart reviewed; full note to follow; for lap henry 05/19/17; r/b/t/a's d/w patient and her father. Hank Philip MD FACS
[2017-05-19 13:57] LABS: FREE T4 0.82 ng/dl (0.76-1.46); THYROID STIMULATING HORMONE 1.77 uIU/ml (0.358-3.74)
[2017-05-19] MEDS: SIMETHICONE 80 MG TAB.CHEW (FP) PO PRN (21:22)
[2017-05-20] MEDS: METRONIDAZOLE 500 MG PREMIXED 500 MG/100 ML MG IVPB SCH ×3 (01:23→18:07)
[2017-05-20 06:06] LABS: SERUM IRON 50 ug/dL (27-159); TOTAL IRON BINDING CAPACITY 292 ug/dL (250-450); UIBC 242 ug/dL (131-425)
[2017-05-20 07:58] LABS: BASO % 0.9 % (0-2.0); EOS % 1.2 % (0-4.5); MCH 29.6 pg (25.7-33.7); MCHC 33.1 g/dl (32.0-36.0); MEAN CELL VOLUME 89.5 fl (80-96); MEAN PLT VOLUME 8.7 fl (7.5-11.1); NEUT % 41.4 % (42.8-82.8); PLATELET COUNT 186 K/MM3 (134-434); RDW 15.6 % (11.6-15.6); WHITE BLOOD COUNT 4.5 K/mm3 (4.0-10.0)
[2017-05-20 08:36] LABS: ALBUMIN 3.2 g/dl (3.4-5.0); AMYLASE 95 U/L (25-115); ANION GAP 7 (8-16); BILIRUBIN,DIRECT 0.2 mg/dL (0.0-0.2); BILIRUBIN,TOTAL 0.4 mg/dL (0.2-1.0); CALCIUM 8.6 mg/dL (8.5-10.1); CO2 27 mmol/L (21-32); CREATININE 0.8 mg/dL (0.55-1.02); GLUCOSE,RANDOM 88 mg/dL (74-106); SGOT/AST 31 U/L (15-37); SGPT/ALT 115 U/L (12-78); TOT PROT 5.9 g/dl (6.4-8.2)
[2017-05-20 08:37] LABS: ALK PHOS 72 U/L (45-117)
[2017-05-20 08:38] LABS: C-REACTIVE PROTEIN < 0.3 MG/DL (0.00-0.3)
[2017-05-20] MEDS: LACTATED RINGERS SOLUTION 1,000 ML/1,000 ML INFUS.BAG IV SCH (10:21)
[2017-05-20] MEDS: URSODIOL 300 MG CAPSULE PO SCH ×2 (10:21→22:07)
[2017-05-20] MEDS: PANTOPRAZOLE 40 MG TABLET (FP) PO SCH (10:21)
[2017-05-20] MEDS: LEVOFLOXACIN 500 MG IVPB 500 MG/100 ML BAG IVPB SCH (10:21)
--- NOTE | 2017-05-20 10:51 | CONSULT ---
- Consultation REQUESTING PROVIDER: Hillary PETERSON CONSULT REQUEST: We have been asked to surgically evaluate this patient for evaluation for cholecystectomy PCP:Bernie Young NP HISTORY OF PRESENT ILLNESS:22 y/o o/w healthy female presented to her PCP w/ one week of n/v/RUQ abdominal pain; she was txed symptomatically h/e did not improve and presented to the ER at ; a w/u ensued which revealed choledocholithiasis and ERCP and related procedures were done including stenting of the CBD w/residual stone(s); she feels better now and has NOC. PMHx: none PSHx: none Home Medications Medication Instructions Recorded NK [No Known Home Medication] 05/15/17 Allergies Allergy/AdvReac Type Severity Reaction Status Date / Time No Known Allergies Allergy Unverified 05/15/17 21:58 PHYSICAL EXAM: GENERAL: Awake, alert, and fully oriented, in no acute distress. HEAD: Normal with no signs of trauma. EYES:sclera anicteric, conjunctiva clear. NECK: Normal ROM, supple without lymphadenopathy, JVD, or masses. ABDOMEN: Soft, nontender, not distended, normoactive bowel sounds, no guarding, no rebound, no masses. No organomegaly. MUSCULOSKELETAL: Normal ROM at all joints. No bony deformities or tenderness. No CVA tenderness. UPPER EXTREMITIES: 2+ pulses, warm, well-perfused. No cyanosis. Cap refill <2 seconds. No peripheral edema. LOWER EXTREMITIES: 2+ pulses, warm, well-perfused. No calf tenderness. No peripheral edema. NEUROLOGICAL: Normal speech, gait not observed. PSYCH: Cooperative. Good eye contact. Appropriate mood and affect. SKIN: Warm, dry, normal turgor, no rashes or lesions noted. Vital Signs Temperature 98.2 F 05/20/17 06:00 Pulse Rate 46 L 05/20/17 06:00 Respiratory Rate 18 05/20/17 06:00 Blood Pressure 101/58 05/20/17 06:00 O2 Sat by Pulse Oximetry (%) 98 05/19/17 18:00 Lab Results WBC 4.5 K/mm3 (4.0-10.0) 05/20/17 07:40 RBC 4.30 M/mm3 (3.60-5.2) 05/20/17 07:40 Hgb 12.7 GM/dL (10.7-15.3) 05/20/17 07:40 Hct 38.4 % (32.4-45.2) 05/20/17 07:40 MCV 89.5 fl (80-96) 05/20/17 07:40 MCHC 33.1 g/dl (32.0-36.0) 05/20/17 07:40 RDW 15.6 % (11.6-15.6) 05/20/17 07:40 Plt Count 186 K/MM3 (134-434) 05/20/17 07:40 Sodium 141 mmol/L (136-145) 05/20/17 07:40 Potassium 3.8 mmol/L (3.5-5.1) 05/20/17 07:40 Chloride 107 mmol/L (98-107) 05/20/17 07:40 Carbon Dioxide 27 mmol/L (21-32) 05/20/17 07:40 Anion Gap 7 (8-16) L 05/20/17 07:40 BUN 4 mg/dL (7-18) L D 05/20/17 07:40 Creatinine 0.8 mg/dL (0.55-1.02) 05/20/17 07:40 Random Glucose 88 mg/dL (74-106) 05/20/17 07:40 Calcium 8.6 mg/dL (8.5-10.1) 05/20/17 07:40 INR 1.05 (0.82-1.09) 05/15/17 22:50 w/u to date reviewed IMP: choledocholithiasis; s/p ERCP and related procedures. PLAN: D/W patient and her father yesterday lap henry possible open; r/b/t/a/'s d /w them; for OR today h/e patient had insurance questions which may have her elect another surgeon. Hank Philip MD FACS Visit type - Case Type Case Type: ED Admission - Emergency Emergency Visit: Yes ED Registration Date: 05/17/17 Care time: The patient presented to the Emergency Department on the above date and was hospitalized for further evaluation of their emergent condition. - New patient This patient is new to me today: Yes Date on this admission: 05/20/17
--- NOTE | 2017-05-20 12:07 | PN ---
Progress Note, Physician History of Present Illness: Retained CBD stone, s/p ERCP with sphincterotomy and stenting. No events overnight. Plan for cholecystectomy today. Mother at bedside. - Current Medication List Current Medications: Active Medications Acetaminophen (Tylenol -) 325 mg PO Q4H PRN PRN Reason: FEVER OR PAIN Last Admin: 05/19/17 23:15 Dose: 325 mg Levofloxacin (Levaquin 500 Mg Premixed Ivpb -) 500 mg in 100 mls @ 100 mls/hr IVPB DAILY [facility] Last Admin: 05/20/17 10:21 Dose: 100 mls/hr Metronidazole (Flagyl 500mg Premixed Ivpb -) 500 mg in 100 mls @ 100 mls/hr IVPB Q8H-IV [facility] Last Admin: 05/20/17 10:21 Dose: 100 mls/hr Lactated Ringer's (Lactated Ringers Solution) 1,000 ml in 1,000 mls @ 100 mls/ hr IV ASDIR [facility] Last Admin: 05/19/17 13:35 Dose: 100 mls/hr Pantoprazole Sodium (Protonix -) 40 mg PO DAILY [facility] Last Admin: 05/20/17 10:21 Dose: 40 mg Prochlorperazine Edisylate (Compazine Injection -) 5 mg IVPB Q4H PRN PRN Reason: NAUSEA AND/OR VOMITING Simethicone (Mylicon -) 80 mg PO Q6H PRN PRN Reason: GAS Last Admin: 05/19/17 21:22 Dose: 80 mg Tramadol HCl (Ultram -) 50 mg PO Q6H PRN PRN Reason: PAIN Ursodiol (Actigal -) 300 mg PO BID [facility] Last Admin: 05/20/17 10:21 Dose: 300 mg - Objective Vital Signs: Vital Signs Temperature 98.2 F 05/20/17 06:00 Pulse Rate 46 L 05/20/17 06:00 Respiratory Rate 18 05/20/17 06:00 Blood Pressure 101/58 05/20/17 06:00 O2 Sat by Pulse Oximetry (%) 98 05/19/17 18:00 Constitutional: Yes: No Distress, Calm Eyes: Yes: Conjunctiva Clear Gastrointestinal: Yes: Soft. No: Tenderness, Vomiting Labs: CBC, BMP 05/20/17 07:40 05/20/17 07:40 INR, PTT INR 1.05 (0.82-1.09) 05/15/17 22:50 Laboratory Results - last 24 hr 05/19/17 05/19/17 05/20/17 07:00 07:00 07:40 WBC RBC Hgb Hct MCV MCH MCHC RDW Plt Count MPV Neutrophils % Lymphocytes % Monocytes % Eosinophils % Basophils % Sodium 141 141 Potassium 3.8 3.8 Chloride 106 107 Carbon Dioxide 29 27 Anion Gap 6 L 7 L BUN 6 L 4 L D Creatinine 0.9 0.8 Creat Clearance w eGFR > 60 Random Glucose 99 88 Calcium 8.8 8.6 Iron 50 TIBC 292 Iron Saturation 17 Ferritin 40.057 Total Bilirubin 0.5 0.4 Direct Bilirubin 0.2 D GGT 269 H AST 42 H D 31 D ALT 137 H D 115 H Alkaline Phosphatase 82 72 C-Reactive Protein < 0.3 < 0.3 Total Protein 5.8 L 5.9 L Albumin 3.3 L 3.2 L Total Amylase 201 H D 95 D Lipase 1021 H 472 H TSH 1.77 Free T4 0.82 05/20/17 07:40 WBC 4.5 RBC 4.30 Hgb 12.7 Hct 38.4 MCV 89.5 MCH 29.6 MCHC 33.1 RDW 15.6 Plt Count 186 MPV 8.7 Neutrophils % 41.4 L Lymphocytes % 48.3 H Monocytes % 8.2 Eosinophils % 1.2 Basophils % 0.9 Sodium Potassium Chloride Carbon Dioxide Anion Gap BUN Creatinine Creat Clearance w eGFR Random Glucose Calcium Iron TIBC Iron Saturation Ferritin Total Bilirubin Direct Bilirubin GGT AST ALT Alkaline Phosphatase C-Reactive Protein Total Protein Albumin Total Amylase Lipase TSH Free T4 Problem List - Problems (1) Abdominal pain Code(s): R10.9 - UNSPECIFIED ABDOMINAL PAIN Qualifiers: Abdominal location: generalized Qualified Code(s): R10.84 - Generalized abdominal pain (2) Elevated liver enzymes Code(s): R74.8 - ABNORMAL LEVELS OF OTHER SERUM ENZYMES (3) Cholestasis Code(s): K83.1 - OBSTRUCTION OF BILE DUCT Assessment/Plan Npo for cholecystetomy per sx. Lipse level down
--- NOTE | 2017-05-20 14:33 | CONSULT ---
Consult Consult Specialty:: Surgery Reason for Consultation:: CBD stone, abdominal pain - History of Present Illness Chief Complaint: Abdominal pain History of Present Illness: 22 female presents for abdominal pain Had multiple studies and interventions including MRCP, U/S, CT and ERCP Noted to have CBD stones on ERCP S/P sphincterotomy and stone removal, stent placement Still with one CBD stone- unable to remove with ERCP States pain is improved since admission - History Source History Provided By: Patient, Family Member, Medical Record Limitations to Obtaining History: No Limitations - Alcohol/Substance Use Hx Alcohol Use: No - Smoking History Smoking history: Never smoked Home Medications - Allergies Allergies/Adverse Reactions: Allergies Allergy/AdvReac Type Severity Reaction Status Date / Time No Known Allergies Allergy Unverified 05/15/17 21:58 - Home Medications Home Medications: Ambulatory Orders NK [No Known Home Medication] 05/15/17 Family Disease History - Family Disease History Family Disease History: Other: Mother (gallstones ) Review of Systems - Review of Systems Constitutional: denies: Chills, Fever Eyes: reports: No Symptoms HENT: reports: No Symptoms Neck: reports: No Symptoms Cardiovascular: denies: Chest Pain Respiratory: denies: Cough Gastrointestinal: reports: Abdominal Pain. denies: Vomiting Neurological: denies: Change in LOC Pain Intensity: 3 Physical Exam Vital Signs: Vital Signs Temperature 98.2 F 05/20/17 06:00 Pulse Rate 46 L 05/20/17 06:00 Respiratory Rate 18 05/20/17 06:00 Blood Pressure 101/58 05/20/17 06:00 O2 Sat by Pulse Oximetry (%) 98 05/19/17 18:00 Constitutional: Yes: Calm HENT: Yes: WNL Neck: Yes: Supple Cardiovascular: Yes: Regular Rate and Rhythm Respiratory: Yes: CTA Bilaterally Gastrointestinal: Yes: Soft, Tenderness, Epigastrium. No: Tenderness, Rebound Extremities: Yes: WNL Neurological: Yes: Alert, Oriented Labs: CBC, BMP 05/20/17 07:40 05/20/17 07:40 Imaging - Results Cat Scan: Report Reviewed, Image Reviewed Ultrasound: Report Reviewed, Image Reviewed MRI: Report Reviewed, Image Reviewed Problem List - Problems (1) Abdominal pain Code(s): R10.9 - UNSPECIFIED ABDOMINAL PAIN Qualifiers: Abdominal location: generalized Qualified Code(s): R10.84 - Generalized abdominal pain (2) Choledocholithiasis with obstruction Code(s): K80.51 - CALCULUS OF BILE DUCT W/O CHOLANGITIS OR CHOLECYST W OBST Qualifiers: Cholecystitis presence: without cholecystitis Qualified Code(s): K80.51 - Calculus of bile duct without cholangitis or cholecystitis with obstruction Assessment/Plan 22 female with choledocholithiasis s/p ERCP Still with CBD stone Pain improved Lipase improving Would not proceed with cholecystectomy at this time Due to retained CBD stone would be at increased risk of cystic clip dislodgement with possible biliary sepsis Low fat diet Continue Ursodiol Planned to see Dr Thornton for repeat ERCP with attempt at CBD stone removal in 3 months If CBD stone removed, would proceed with cholecystectomy after that Advance diet Serial Lipase levels Patient and family agree with plan
--- NOTE | 2017-05-20 15:05 | EKG ---
Test Reason : Blood Pressure : / mmHG Vent. Rate : 052 BPM Atrial Rate : 052 BPM P-R Int : 118 ms QRS Dur : 096 ms QT Int : 434 ms P-R-T Axes : 034 063 027 degrees QTc Int : 403 ms SINUS BRADYCARDIA OTHERWISE NORMAL ECG NO PREVIOUS ECGS AVAILABLE Confirmed by EMMA PETERSON, YUAN ([id number]) on 05/20/2017 3:04:52 PM Referred By: Harshad LIU Confirmed By:YUAN CARTER MD
--- NOTE | 2017-05-20 16:51 | PN ---
Physical Exam: SUBJECTIVE: Patient seen and examined OBJECTIVE: Vital Signs Period Temp Pulse Resp BP Sys/Yi Pulse Ox Last 24 Hr 97.9 F-98.2 F 41-53 18-18 101-104/58-63 98 GENERAL: The patient is awake, alert, and fully oriented, in no acute distress. HEAD: Normal with no signs of trauma. EYES: PERRL, extraocular movements intact, sclera anicteric, conjunctiva clear. No ptosis. ENT: Ears normal, nares patent, oropharynx clear without exudates, moist mucous membranes. NECK: Trachea midline, full range of motion, supple. LUNGS: Breath sounds equal, clear to auscultation bilaterally, no wheezes, no crackles, no accessory muscle use. HEART: Regular rate and rhythm, S1, S2 without murmur, rub or gallop. ABDOMEN: Soft, + tenderness, nondistended, normoactive bowel sounds, no guarding , no rebound, no hepatosplenomegaly, no masses. EXTREMITIES: 2+ pulses, warm, well-perfused, no edema. NEUROLOGICAL: Normal speech, gait not observed. PSYCH: Normal mood, normal affect. SKIN: Warm, dry, normal turgor, no rashes or lesions noted Laboratory Results - last 24 hr 05/19/17 05/20/17 05/20/17 07:00 07:40 07:40 WBC 4.5 RBC 4.30 Hgb 12.7 Hct 38.4 MCV 89.5 MCH 29.6 MCHC 33.1 RDW 15.6 Plt Count 186 MPV 8.7 Neutrophils % 41.4 L Lymphocytes % 48.3 H Monocytes % 8.2 Eosinophils % 1.2 Basophils % 0.9 Sodium 141 Potassium 3.8 Chloride 107 Carbon Dioxide 27 Anion Gap 7 L BUN 4 L D Creatinine 0.8 Random Glucose 88 Calcium 8.6 Iron 50 TIBC 292 Iron Saturation 17 Total Bilirubin 0.4 Direct Bilirubin 0.2 D AST 31 D ALT 115 H Alkaline Phosphatase 72 C-Reactive Protein < 0.3 Total Protein 5.9 L Albumin 3.2 L Total Amylase 95 D Lipase 472 H Tiss Transglutamin IgG < 2 Tiss Transglutamin IgA < 2 Active Medications Generic Name Dose Route Start Last Admin Trade Name Freq PRN Reason Stop Dose Admin Acetaminophen 325 mg 05/18/17 11:38 05/19/17 23:15 Tylenol - PO 325 mg Q4H PRN Administration FEVER OR PAIN Levofloxacin 500 mg in 100 mls @ 100 mls/hr 05/17/17 17:46 05/20/17 10:21 Levaquin 500 Mg Premixed Ivpb - IVPB 100 mls/hr DAILY [facility] Administration Metronidazole 500 mg in 100 mls @ 100 mls/hr 05/17/17 18:00 05/20/17 10:21 Flagyl 500mg Premixed Ivpb - IVPB 100 mls/hr Q8H-IV [facility] Administration Lactated Ringer's 1,000 ml in 1,000 mls @ 100 mls/hr 05/18/17 12:30 05/19/17 13:35 Lactated Ringers Solution IV 100 mls/hr ASDIR [facility] Administration Pantoprazole Sodium 40 mg 05/16/17 17:15 05/20/17 10:21 Protonix - PO 40 mg DAILY [facility] Administration Prochlorperazine Edisylate 5 mg 05/19/17 08:58 Compazine Injection - IVPB Q4H PRN NAUSEA AND/OR VOMITING Simethicone 80 mg 05/18/17 17:36 05/19/17 21:22 Mylicon - PO 80 mg Q6H PRN Administration GAS Tramadol HCl 50 mg 05/19/17 08:55 Ultram - PO Q6H PRN PAIN Ursodiol 300 mg 05/19/17 10:00 05/20/17 10:21 Actigal - PO 300 mg BID [facility] Administration ASSESSMENT/PLAN: Patient is a 22 year old female with no significant PMHx who presented to the ED with nausea, vomiting, and abdominal pain x1 week. GI: Choledocholithiaisis with obstruction She is s/p ERCP sphincterotomy with incomplete stone extractions and stent insertion On Actigal, On Flagyl q8, Levaquin 500mg daily Dr. Lemus following Surgery evaluated, as per surgery, no cholecystectomy at this time due to retained CBD stone Patient to see GI as an outpatient for repeat ERCP and attempt to extract stone , if stone, removed will surgery to proceed with cholecystectomy Full liquid low fat diet Lipase levels trending down, monitor daily Monitor for any abdominal symptoms Cardiology Bradycardia Asymptomatic, monitor F.E.N. Fluids: PO intake Electrolyes: monitor Nutrition: full liquid, low fat Prophylaxis: DVT: ambulatory young patient, defer a/c for ow GI: Protonix 40mg PO daily Disposition: full code
[2017-05-21] MEDS: METRONIDAZOLE 500 MG PREMIXED 500 MG/100 ML MG IVPB SCH ×3 (02:41→17:21)
[2017-05-21 09:18] LABS: BASO % 0.8 % (0-2.0); EOS % 1.2 % (0-4.5); MCH 29.3 pg (25.7-33.7); MCHC 32.8 g/dl (32.0-36.0); MEAN CELL VOLUME 89.1 fl (80-96); MEAN PLT VOLUME 9.1 fl (7.5-11.1); NEUT % 35.5 % (42.8-82.8); PLATELET COUNT 217 K/MM3 (134-434); WHITE BLOOD COUNT 3.7 K/mm3 (4.0-10.0)
[2017-05-21 09:47] LABS: ALBUMIN 3.3 g/dl (3.4-5.0); ANION GAP 7 (8-16); CALCIUM 8.6 mg/dL (8.5-10.1); CO2 27 mmol/L (21-32); GLUCOSE,RANDOM 82 mg/dL (74-106)
[2017-05-21 09:57] LABS: ALK PHOS 70 U/L (45-117); BILIRUBIN,TOTAL 0.7 mg/dL (0.2-1.0); CREATININE 0.8 mg/dL (0.55-1.02); SGOT/AST 28 U/L (15-37); SGPT/ALT 102 U/L (12-78)
--- NOTE | 2017-05-21 10:03 | PN ---
Physical Exam: SUBJECTIVE: Patient seen and examined at the bedside. She denies any further abdominal pain or discomfort. States she feels well and is tolerating her diet. OBJECTIVE: Discussed with GI, patient will need outpatient follow up appointment prior to discharge. Parents and patient are contacting their PCP for a GI appointment followup at [facility] Patient's PCP is Dr. Sargent and Dr. Zamudio Patient can be discharged once this f/u appointment is made. Vital Signs Period Temp Pulse Resp BP Sys/Yi Pulse Ox Last 24 Hr 97.9 F-98.4 F 50-58 18-20 96-108/51-66 99 GENERAL: The patient is awake, alert, and fully oriented, in no acute distress. HEAD: Normal with no signs of trauma. EYES: PERRL, extraocular movements intact, sclera anicteric, conjunctiva clear. No ptosis. ENT: Ears normal, nares patent, oropharynx clear without exudates, moist mucous membranes. NECK: Trachea midline, full range of motion, supple. LUNGS: Breath sounds equal, clear to auscultation bilaterally, no wheezes, no crackles, no accessory muscle use. HEART: Regular rate and rhythm, S1, S2 without murmur, rub or gallop. ABDOMEN: Soft, + tenderness, nondistended, normoactive bowel sounds, no guarding , no rebound, no hepatosplenomegaly, no masses. EXTREMITIES: 2+ pulses, warm, well-perfused, no edema. NEUROLOGICAL: Normal speech, gait not observed. PSYCH: Normal mood, normal affect. SKIN: Warm, dry, normal turgor, no rashes or lesions noted Laboratory Results - last 24 hr 05/19/17 05/21/17 05/21/17 07:00 07:45 07:45 WBC 3.7 L RBC 4.53 Hgb 13.3 Hct 40.3 MCV 89.1 MCH 29.3 MCHC 32.8 RDW 15.0 Plt Count 217 MPV 9.1 Neutrophils % 35.5 L Lymphocytes % 54.0 H Monocytes % 8.5 Eosinophils % 1.2 Basophils % 0.8 Sodium 140 Potassium 4.1 Chloride 106 Carbon Dioxide 27 Anion Gap 7 L BUN 3 L D Creatinine 0.8 Creat Clearance w eGFR > 60 Random Glucose 82 Calcium 8.6 Total Bilirubin 0.7 D AST 28 ALT 102 H Alkaline Phosphatase 70 Total Protein 6.0 L Albumin 3.3 L Lipase 311 MEGHA Screen Negative Tiss Transglutamin IgG < 2 Tiss Transglutamin IgA < 2 Active Medications Generic Name Dose Route Start Last Admin Trade Name Damien PRN Reason Stop Dose Admin Acetaminophen 325 mg 05/18/17 11:38 05/19/17 23:15 Tylenol - PO 325 mg Q4H PRN Administration FEVER OR PAIN Levofloxacin 500 mg in 100 mls @ 100 mls/hr 05/17/17 17:46 05/20/17 10:21 Levaquin 500 Mg Premixed Ivpb - IVPB 100 mls/hr DAILY [facility] Administration Metronidazole 500 mg in 100 mls @ 100 mls/hr 05/17/17 18:00 05/21/17 02:41 Flagyl 500mg Premixed Ivpb - IVPB 100 mls/hr Q8H-IV [facility] Administration Pantoprazole Sodium 40 mg 05/16/17 17:15 05/20/17 10:21 Protonix - PO 40 mg DAILY [facility] Administration Prochlorperazine Edisylate 5 mg 05/19/17 08:58 Compazine Injection - IVPB Q4H PRN NAUSEA AND/OR VOMITING Simethicone 80 mg 05/18/17 17:36 05/19/17 21:22 Mylicon - PO 80 mg Q6H PRN Administration GAS Tramadol HCl 50 mg 05/19/17 08:55 Ultram - PO Q6H PRN PAIN Ursodiol 300 mg 05/19/17 10:00 05/20/17 22:07 Actigal - PO 300 mg BID [facility] Administration ASSESSMENT/PLAN: Patient is a 22 year old female with no significant past medical history. She presented to the ED on 05/17/2017 with nausea, vomiting, and abdominal pain for approximately one week. GI: Choledocholithiaisis with obstruction She is s/p ERCP sphincterotomy with stent insertion and incomplete stone extractions on 05/[address] Thornton On Actigal, On Flagyl q8, Levaquin 500mg daily, wound switch antibiotics to PO on d/c and continue for a full 10 day course Surgery evaluated, as per surgery, no cholecystectomy at this time due to retained CBD stone Patient is tolerating meals, lipase now within normal limits, no further abdominal pain or discomfort, no further nausea or vomiting. Tolerating a regular low fat diet. Discussed with GI, patient will need outpatient follow up appointment prior to discharge. Parents and patient are contacting their PCP for a GI appointment followup at [facility] Patient's PCP is Dr. Sargent and Dr. Zaumdio Patient can be discharged once this f/u appointment is made. Cardiology: Bradycardia Asymptomatic, monitor for now F.E.N. Fluids: PO intake Electrolyes: monitor Nutrition: full liquid, low fat Prophylaxis: DVT: ambulatory young patient, defer a/c for ow GI: Protonix 40mg PO daily Disposition: full code. Discharge likely tomorrow after GI appointment secured at [facility]. Visit type - Emergency Visit Emergency Visit: Yes ED Registration Date: 05/17/17 Care time: The patient presented to the Emergency Department on the above date and was hospitalized for further evaluation of their emergent condition. - New Patient This patient is new to me today: No - Critical Care Critical Care patient: No - Discharge Referral Referred to [facility] No Physician Referral: Wallace Matute MD ([facility])
[2017-05-21] MEDS: LEVOFLOXACIN 500 MG IVPB 500 MG/100 ML BAG IVPB SCH (10:41)
[2017-05-21] MEDS: URSODIOL 300 MG CAPSULE PO SCH ×2 (10:44→21:23)
[2017-05-21] MEDS: PANTOPRAZOLE 40 MG TABLET (FP) PO SCH (10:44)
[2017-05-21] MEDS ORDERED: POLYETHYLENE GLYCOL 3350 119 GM BTL PO ONE (12:30)
--- NOTE | 2017-05-21 13:51 | PN ---
Progress Note, Physician History of Present Illness: Retained CBD stone, s/p ERCP with sphincterotomy and stenting. No events overnight. Clinically doing well. Mother at bedside. Tolerating regular diet. Labs unchanged from yesterday - Current Medication List Current Medications: Active Medications Acetaminophen (Tylenol -) 325 mg PO Q4H PRN PRN Reason: FEVER OR PAIN Last Admin: 05/19/17 23:15 Dose: 325 mg Levofloxacin (Levaquin 500 Mg Premixed Ivpb -) 500 mg in 100 mls @ 100 mls/hr IVPB [facility]ILY [facility] Last Admin: 05/21/17 10:41 Dose: 100 mls/hr Metronidazole (Flagyl 500mg Premixed Ivpb -) 500 mg in 100 mls @ 100 mls/hr IVPB Q8H-IV [facility] Last Admin: 05/21/17 12:14 Dose: 100 mls/hr Pantoprazole Sodium (Protonix -) 40 mg PO DAILY [facility] Last Admin: 05/21/17 10:44 Dose: 40 mg Prochlorperazine Edisylate (Compazine Injection -) 5 mg IVPB Q4H PRN PRN Reason: NAUSEA AND/OR VOMITING Simethicone (Mylicon -) 80 mg PO Q6H PRN PRN Reason: GAS Last Admin: 05/19/17 21:22 Dose: 80 mg Tramadol HCl (Ultram -) 50 mg PO Q6H PRN PRN Reason: PAIN Ursodiol (Actigal -) 300 mg PO BID [facility] Last Admin: 05/21/17 10:44 Dose: 300 mg - Objective Vital Signs: Vital Signs Temperature 98.2 F 05/21/17 06:00 Pulse Rate 50 L 05/21/17 06:00 Respiratory Rate 20 05/21/17 06:00 Blood Pressure 96/51 05/21/17 06:00 O2 Sat by Pulse Oximetry (%) 99 05/20/17 21:00 Constitutional: Yes: No Distress, Calm Gastrointestinal: Yes: Soft. No: Tenderness, Vomiting Neurological: Yes: Alert, Oriented Labs: CBC, BMP 05/21/17 07:45 05/21/17 07:45 INR, PTT INR 1.05 (0.82-1.09) 05/15/17 22:50 Laboratory Results - last 24 hr 05/19/17 05/21/17 05/21/17 07:00 07:45 07:45 WBC 3.7 L RBC 4.53 Hgb 13.3 Hct 40.3 MCV 89.1 MCH 29.3 MCHC 32.8 RDW 15.0 Plt Count 217 MPV 9.1 Neutrophils % 35.5 L Lymphocytes % 54.0 H Monocytes % 8.5 Eosinophils % 1.2 Basophils % 0.8 Sodium 140 Potassium 4.1 Chloride 106 Carbon Dioxide 27 Anion Gap 7 L BUN 3 L D Creatinine 0.8 Creat Clearance w eGFR > 60 Random Glucose 82 Calcium 8.6 Total Bilirubin 0.7 D AST 28 ALT 102 H Alkaline Phosphatase 70 Total Protein 6.0 L Albumin 3.3 L Lipase 311 MEGHA Screen Negative Tiss Transglutamin IgG < 2 Tiss Transglutamin IgA < 2 Problem List - Problems (1) Abdominal pain Code(s): R10.9 - UNSPECIFIED ABDOMINAL PAIN Qualifiers: Abdominal location: generalized Qualified Code(s): R10.84 - Generalized abdominal pain (2) Elevated liver enzymes Code(s): R74.8 - ABNORMAL LEVELS OF OTHER SERUM ENZYMES (3) Cholestasis Code(s): K83.1 - OBSTRUCTION OF BILE DUCT Assessment/Plan Needs definite treatment of choledocolithiasis. Will refer to a tertiary center for repeat ERCP with possible stone distruction if, indeed, the stone is to large to be extracted via balloon sweep of the cbd. Discussed with the patient and her mother. The mother will contact her PCP for advanced endo at [facility]. The pt can follow up as OP with close monitoring for the recurrence of the symptoms. will follow
[2017-05-21] MEDS: ACETAMINOPHEN 325 MG TABLET (FP) PO PRN (20:10)
[2017-05-22] MEDS: metroNIDAZOLE 250 MG TABLET PO SCH ×2 (01:33→06:52)
[2017-05-22 08:44] LABS: BASO % 0.8 % (0-2.0); EOS % 1.4 % (0-4.5); MCH 29.4 pg (25.7-33.7); MCHC 33.2 g/dl (32.0-36.0); MEAN CELL VOLUME 88.5 fl (80-96); NEUT % 40.4 % (42.8-82.8); PLATELET COUNT 228 K/MM3 (134-434); RDW 15.1 % (11.6-15.6); WHITE BLOOD COUNT 4.1 K/mm3 (4.0-10.0)
[2017-05-22 09:15] LABS: AMYLASE 69 U/L (25-115)
[2017-05-22 09:17] LABS: ALBUMIN 3.6 g/dl (3.4-5.0); ALK PHOS 68 U/L (45-117); ANION GAP 8 (8-16); BILIRUBIN,TOTAL 0.8 mg/dL (0.2-1.0); CALCIUM 8.7 mg/dL (8.5-10.1); CO2 25 mmol/L (21-32); CREATININE 0.9 mg/dL (0.55-1.02); GLUCOSE,RANDOM 84 mg/dL (74-106); SGOT/AST 22 U/L (15-37); SGPT/ALT 94 U/L (12-78); TOT PROT 6.4 g/dl (6.4-8.2)
[2017-05-22] MEDS: PANTOPRAZOLE 40 MG TABLET (FP) PO SCH (09:46)
[2017-05-22] MEDS: URSODIOL 300 MG CAPSULE PO SCH (09:46)
[2017-05-22 09:50] VITALS: BP 89/44; PULSE 43; TEMP 98.4
[2017-05-22] MEDS ORDERED: LEVOFLOXACIN 500 MG TABLET (FP) PO SCH (10:00)
--- NOTE | 2017-05-22 10:27 | DS ---
Physical Examination Vital Signs: Vital Signs Temperature 98.4 F 05/22/17 09:46 Pulse Rate 43 L 05/22/17 09:46 Respiratory Rate 16 05/22/17 09:46 Blood Pressure 89/44 05/22/17 09:46 O2 Sat by Pulse Oximetry (%) 95 05/21/17 21:00 Findings/Remarks: General: NAD, A&Ox3 Lungs: CTA bilaterally Heart: RRR, S1S2 Abd: Soft, non-tender, non-distended. Normoactive bowel sounds Ext: Warm, well-perfused. 2+ DP/PT bilaterally Labs: CBC, BMP 05/22/17 08:00 05/22/17 08:00 Discharge Summary Reason For Visit: ABD. PAIN/ELEVATED LIVER ENZYMES/ ASCITES Current Active Problems Abdominal pain (Acute) Choledocholithiasis with obstruction (Acute) Cholestasis (Acute) Elevated liver enzymes (Acute) Hospital Course: This is a 22 year old female with no significant PMHx who presented to the ED with nausea, vomiting, and abdominal pain x1 week. Plan: 1) Choledocholithiaisis with obstruction - ERCP performed: sphincterotomy with incomplete stone extractions and stent insertion 05/17 - Per surgery, will eventually need cholecystectomy but not at this time as there is retained CBD stone - Per GI, will need to go to tertiary care center for repeat EGD with CBD stone removal. Mother and patient aware - Abx discontinued per GI - Continue Actigal - Tolerating diet - MEGHA negative - Monoscreen negative - Hepatitis panel negative 2) Bradycardia - Asymptomatic - EKG with sinus bradycardia Spoke to patient's mother, Zully, who states the patient has an appointment with her primary care provider's office, Dr. Zamudio on Saturday. The patient is to follow-up with Steven Butcher ([phone]) on 05/24 at 2:30pm Condition: Improved - Instructions Diet, Activity, Other Instructions: Please return to the ED with new, persistent, or worsening symptoms. Please continue the antibiotics as prescribed without skipping any doses, continue antibiotics until 05/27/2017. Continue Actigal Please follow-up with your primary care provider, Dr. Zamudio ([phone]) as scheduled on 05/24/17. Please follow up with Dr. Steven Butcher on 05/24 at 2:30pm for possible repeat ERCP for stone removal Continue low fat diet Please call us with any questions. Elizabeth Osei NP [facility] Referrals: Dario Alas MD [Staff Physician] - Eduardo Lemus MD [Staff Physician] - 1 Week Disposition: HOME - Home Medications Comprehensive Discharge Medication List: Ambulatory Orders Acetaminophen [Tylenol .Regular Strength -] 325 mg PO Q4H PRN tablet 05/22/17 Levofloxacin [Levaquin -] 500 mg PO DAILY #5 tablet 05/22/17 Metronidazole [Flagyl -] 500 mg PO TID #15 tablet 05/22/17 Ursodiol [Actigal -] 300 mg PO BID #60 capsule 05/22/17 This patient is new to me today: No Emergency Visit: Yes ED Registration Date: 05/17/17 Care time: The patient presented to the Emergency Department on the above date and was hospitalized for further evaluation of their emergent condition. Critical Care patient: No - Discharge Referral Referred to [facility] No Physician Referral: Wallace Matute MD ([facility])
--- NOTE | 2017-05-22 11:26 | PN ---
Progress Note, Physician History of Present Illness: Retained CBD stone, s/p ERCP with sphincterotomy and stenting. No events overnight. Clinically doing well. Tolerating regular diet. Labs improved - Current Medication List Current Medications: Active Medications Acetaminophen (Tylenol -) 325 mg PO Q4H PRN PRN Reason: FEVER OR PAIN Last Admin: 05/21/17 20:10 Dose: 325 mg Levofloxacin (Levaquin -) 500 mg PO DAILY [facility] Last Admin: 05/22/17 09:46 Dose: 500 mg Metronidazole (Flagyl -) 500 mg PO TID [facility] Last Admin: 05/22/17 06:52 Dose: 500 mg Pantoprazole Sodium (Protonix -) 40 mg PO DAILY [facility] Last Admin: 05/22/17 09:46 Dose: 40 mg Prochlorperazine Edisylate (Compazine Injection -) 5 mg IVPB Q4H PRN PRN Reason: NAUSEA AND/OR VOMITING Simethicone (Mylicon -) 80 mg PO Q6H PRN PRN Reason: GAS Last Admin: 05/19/17 21:22 Dose: 80 mg Tramadol HCl (Ultram -) 50 mg PO Q6H PRN PRN Reason: PAIN Ursodiol (Actigal -) 300 mg PO BID [facility] Last Admin: 05/22/17 09:46 Dose: 300 mg - Objective Vital Signs: Vital Signs Temperature 98.4 F 05/22/17 09:46 Pulse Rate 43 L 05/22/17 09:46 Respiratory Rate 16 05/22/17 09:46 Blood Pressure 89/44 05/22/17 09:46 O2 Sat by Pulse Oximetry (%) 95 05/21/17 21:00 Constitutional: Yes: No Distress, Calm Eyes: Yes: Conjunctiva Clear Gastrointestinal: Yes: Soft. No: Tenderness Labs: CBC, BMP 05/22/17 08:00 05/22/17 08:00 INR, PTT INR 1.05 (0.82-1.09) 05/15/17 22:50 CBCD WBC 4.1 K/mm3 (4.0-10.0) 05/22/17 08:00 RBC 4.61 M/mm3 (3.60-5.2) 05/22/17 08:00 Hgb 13.6 GM/dL (10.7-15.3) 05/22/17 08:00 Hct 40.8 % (32.4-45.2) 05/22/17 08:00 MCV 88.5 fl (80-96) 05/22/17 08:00 MCHC 33.2 g/dl (32.0-36.0) 05/22/17 08:00 RDW 15.1 % (11.6-15.6) 05/22/17 08:00 Plt Count 228 K/MM3 (134-434) 05/22/17 08:00 MPV 9.0 fl (7.5-11.1) 05/22/17 08:00 CMP Sodium 138 mmol/L (136-145) 05/22/17 08:00 Potassium 4.4 mmol/L (3.5-5.1) 05/22/17 08:00 Chloride 105 mmol/L (98-107) 05/22/17 08:00 Carbon Dioxide 25 mmol/L (21-32) 05/22/17 08:00 Anion Gap 8 (8-16) 05/22/17 08:00 BUN 6 mg/dL (7-18) L D 05/22/17 08:00 Creatinine 0.9 mg/dL (0.55-1.02) 05/22/17 08:00 Creat Clearance w eGFR > 60 (>60) 05/22/17 08:00 Calcium 8.7 mg/dL (8.5-10.1) 05/22/17 08:00 Total Bilirubin 0.8 mg/dL (0.2-1.0) 05/22/17 08:00 AST 22 U/L (15-37) D 05/22/17 08:00 ALT 94 U/L (12-78) H 05/22/17 08:00 Alkaline Phosphatase 68 U/L (45-117) 05/22/17 08:00 Total Protein 6.4 g/dl (6.4-8.2) 05/22/17 08:00 Albumin 3.6 g/dl (3.4-5.0) 05/22/17 08:00 Problem List - Problems (1) Abdominal pain Code(s): R10.9 - UNSPECIFIED ABDOMINAL PAIN Qualifiers: Abdominal location: generalized Qualified Code(s): R10.84 - Generalized abdominal pain (2) Elevated liver enzymes Code(s): R74.8 - ABNORMAL LEVELS OF OTHER SERUM ENZYMES (3) Cholestasis Code(s): K83.1 - OBSTRUCTION OF BILE DUCT Assessment/Plan Needs definite treatment of choledocolithiasis. Pt and her mother aware of the next step - dealing with the remaining stone The mother is working on getting an appointment via PCP @ [facility]. We offered to arrange follow up at [facility] with Dr. Arnold Sapp. Close monitoring for fever, chills, nausea, vomiting, abdominal pain, jaundice and should any of it occur seek immediate medical attention.
--- NOTE | 2017-05-22 15:30 | PN ---
Progress Note (short form) - Note Progress Note: No new events On diet Pain resolving No nausea Vital Signs Period Temp Pulse Resp BP Sys/Yi Pulse Ox Last 24 Hr 98.0 F-98.6 F 43-60 16-20 89-100/44-60 95-95 Abd soft, NT CBC,CMP WBC 4.1 K/mm3 (4.0-10.0) 05/22/17 08:00 RBC 4.61 M/mm3 (3.60-5.2) 05/22/17 08:00 Hgb 13.6 GM/dL (10.7-15.3) 05/22/17 08:00 Hct 40.8 % (32.4-45.2) 05/22/17 08:00 MCV 88.5 fl (80-96) 05/22/17 08:00 MCH 29.4 pg (25.7-33.7) 05/22/17 08:00 MCHC 33.2 g/dl (32.0-36.0) 05/22/17 08:00 RDW 15.1 % (11.6-15.6) 05/22/17 08:00 Plt Count 228 K/MM3 (134-434) 05/22/17 08:00 MPV 9.0 fl (7.5-11.1) 05/22/17 08:00 Neutrophils % 40.4 % (42.8-82.8) L 05/22/17 08:00 Lymphocytes % 50.5 % (8-40) H 05/22/17 08:00 Monocytes % 6.9 % (3.8-10.2) 05/22/17 08:00 Eosinophils % 1.4 % (0-4.5) 05/22/17 08:00 Basophils % 0.8 % (0-2.0) 05/22/17 08:00 Sodium 138 mmol/L (136-145) 05/22/17 08:00 Potassium 4.4 mmol/L (3.5-5.1) 05/22/17 08:00 Chloride 105 mmol/L (98-107) 05/22/17 08:00 Carbon Dioxide 25 mmol/L (21-32) 05/22/17 08:00 Anion Gap 8 (8-16) 05/22/17 08:00 BUN 6 mg/dL (7-18) L D 05/22/17 08:00 Creatinine 0.9 mg/dL (0.55-1.02) 05/22/17 08:00 Creat Clearance w eGFR > 60 (>60) 05/22/17 08:00 Random Glucose 84 mg/dL (74-106) 05/22/17 08:00 Calcium 8.7 mg/dL (8.5-10.1) 05/22/17 08:00 Phosphorus 3.5 mg/dl (2.5-4.6) 05/16/17 08:30 Magnesium 1.8 mg/dL (1.8-2.4) 05/16/17 08:30 Iron 50 ug/dL (27-159) 05/19/17 07:00 TIBC 292 ug/dL (250-450) 05/19/17 07:00 Iron Saturation 17 % (15-55) 05/19/17 07:00 Ferritin 40.057 ng/ml (6.9-282.5) 05/19/17 07:00 Total Bilirubin 0.8 mg/dL (0.2-1.0) 05/22/17 08:00 Direct Bilirubin 0.2 mg/dL (0.0-0.2) D 05/20/17 07:40 GGT 269 U/L (5-85) H 05/19/17 07:00 AST 22 U/L (15-37) D 05/22/17 08:00 ALT 94 U/L (12-78) H 05/22/17 08:00 Alkaline Phosphatase 68 U/L (45-117) 05/22/17 08:00 C-Reactive Protein < 0.3 MG/DL (0.00-0.3) 05/20/17 07:40 Total Protein 6.4 g/dl (6.4-8.2) 05/22/17 08:00 Albumin 3.6 g/dl (3.4-5.0) 05/22/17 08:00 Total Amylase 69 U/L (25-115) D 05/22/17 08:00 Lipase 327 U/L (73-393) 05/22/17 08:00 TSH 1.77 uIU/ml (0.358-3.74) 05/19/17 07:00 Free T4 0.82 ng/dl (0.76-1.46) 05/19/17 07:00 Serum , Qual Negative 05/15/17 22:50 Will need removal of retained CBD stone and then cholecystectomy Problem List - Problems (1) Abdominal pain Code(s): R10.9 - UNSPECIFIED ABDOMINAL PAIN Qualifiers: Abdominal location: generalized Qualified Code(s): R10.84 - Generalized abdominal pain (2) Choledocholithiasis with obstruction Code(s): K80.51 - CALCULUS OF BILE DUCT W/O CHOLANGITIS OR CHOLECYST W OBST Qualifiers: Cholecystitis presence: without cholecystitis Qualified Code(s): K80.51 - Calculus of bile duct without cholangitis or cholecystitis with obstruction
== END 2017-05-22 12:30 | disposition home or self-care (01) ==
LOC: FER 21:55 → FM/S 05-16 04:44 → OBSVTOIN 05-17 13:52 → JSAMEDAYSX 05-17 17:45 → J6S 05-17 19:15
PROVIDERS: ADMIT Internal Medicine; ATTEND Registered Nurse
PROC: 0F798DZ Dilation of Common Bile Duct with Intraluminal Device, Via Natural or Artificial Opening Endoscopic (ICD-10-PCS; 2017-05-17)
PROC: BF10YZZ Fluoroscopy of Bile Ducts using Other Contrast (ICD-10-PCS; 2017-05-17)
PROC: 0FC98ZZ Extirpation of Matter from Common Bile Duct, Via Natural or Artificial Opening Endoscopic (ICD-10-PCS; principal; 2017-05-17 18:00)
DX: K80.51 Calculus of bile duct without cholangitis or cholecystitis with obstruction (principal); R00.1 Bradycardia, unspecified; I31.3 Pericardial effusion (noninflammatory); R18.8 Other ascites
CPT/HCPCS: 36415; 74177-TC; 74182-TC; 76000-TC; 76705-TC; 80048; 80053; 80074; 80076; 81003; 82150; 82248; 82728; 82977; 83516; 83540; 83550; 83690; 83735; 84100; 84439; 84443; 84703; 85025; 85610; 86038; 86140; 86308; 86803; 87086; 93005; 93010; 94760; 99285-25; G0378

== ENCOUNTER 2017-06-25 08:53 | Day surgery (SDC) | payer SELFPAY ==
[2017-06-25 09:32] VITALS: BMI 17.6
[2017-06-25 10:00] LABS: EOS % 2.1 % (0-4.5); HEMATOCRIT 44.3 % (32.4-45.2); HEMOGLOBIN 14.3 GM/dL (10.7-15.3); MCH 29.3 pg (25.7-33.7); MCHC 32.3 g/dl (32.0-36.0); MEAN CELL VOLUME 90.6 fl (80-96); MEAN PLT VOLUME 9.4 fl (7.5-11.1); MONO % 7.5 % (3.8-10.2); NEUT % 50.4 % (42.8-82.8); PLATELET COUNT 186 K/MM3 (134-434); RDW 15.2 % (11.6-15.6); WHITE BLOOD COUNT 4.9 K/mm3 (4.0-10.0)
[2017-06-25] MEDS ORDERED: SODIUM CHLORIDE 1,000 ML IV SCH ×2 (10:00→11:00)
--- NOTE | 2017-06-25 10:00 | PDOC ---
History of Present Illness - General Chief Complaint: Pain Stated Complaint: PAIN/STOMACH PAIN Time Seen by Provider: 06/25/17 09:33 History Source: Patient Exam Limitations: No Limitations - History of Present Illness Travel History: No Initial Comments: 06/25/17 09:52 This is a 22-year-old female with past medical history of acute gallstone pancreatitis who presents to emergency department with epigastric pain 5 days. She reports pain as "uncomfortable" and rates 5 out of 10 constant. She states the pain is significantly better than when she had the acute gallstone pancreatitis. Patient states she was admitted here from May 15 through May 21 and had an ERCP done with stent placement. At that time and one stone was removed, another stone was unable to be retrieved at that time. Patient was discharged follow-up at [facility] with Dr. Sapp to have other stone removed. Patient states she followed up on June 19 and had additional stone and stent removed at that time. Patient is also experiencing a bitemporal headache for 3-4 days which waxes and wanes worse in the morning and early evening. Patient reports nausea. She denies any fevers, chills, chest pain, shortness of breath, vomiting, dysuria, urinary frequency. GI- Dr. Sapp Surgeon- Arad PMH: Acute gallstone pancreatitis PSH: Denies ALLERGIES: Anesthesia-> rash with facial swelling Past History - Past Medical History Allergies/Adverse Reactions: Allergies Allergy/AdvReac Type Severity Reaction Status Date / Time No Known Allergies Allergy Unverified 05/15/17 21:58 Home Medications: Ambulatory Orders Biotin 2,500 mcg PO DAILY 06/25/17 Controll Pill DAILY 06/25/17 Cyanocobalamin [Vitamin B12 -] 1,000 mcg PO DAILY 06/25/17 Docusate Sodium [Colace -] 100 mg PO TID #90 capsule 06/25/17 Oxycodone HCl/Acetaminophen [Percocet 5-325 mg Tablet] 1 - 2 tab PO Q6H #28 tab MDD 4 06/25/17 COPD: No - Suicide/Smoking/Psychosocial Hx Smoking History: Never smoked Have you smoked in the past 12 months: No Information on smoking cessation initiated: No Hx Alcohol Use: No Drug/Substance Use Hx: No Substance Use Type: None Review of Systems - Review of Systems Able to Perform ROS?: Yes Is the patient limited Slovenian proficient: No Constitutional: No: Symptoms Reported HEENTM: No: Symptoms Reported Respiratory: No: Symptoms reported Cardiac (ROS): No: Symptoms Reported ABD/GI: Yes: See HPI : No: Symptoms Reported Musculoskeletal: No: Symptoms Reported Integumentary: No: Symptoms Reported Neurological: Yes: See HPI *Physical Exam - Vital Signs Last Vital Signs Temp Pulse Resp BP Pulse Ox 98 F 59 L 18 118/73 100 06/25/17 09:23 06/25/17 09:23 06/25/17 09:23 06/25/17 09:23 06/25/17 09:23 - Physical Exam General Appearance: Yes: Appropriately Dressed. No: Apparent Distress HEENT: positive: Normal ENT Inspection Neck: positive: Trachea midline, Supple Respiratory/Chest: positive: Lungs Clear, Normal Breath Sounds. negative: Respiratory Distress, Accessory Muscle Use Cardiovascular: positive: Regular Rhythm, Regular Rate, S1, S2. negative: Edema , Murmur Gastrointestinal/Abdominal: positive: Normal Bowel Sounds, Soft. negative: Tender Musculoskeletal: positive: Normal Inspection. negative: CVA Tenderness Extremity: positive: Normal Capillary Refill, Normal Inspection, Normal Range of Motion Integumentary: positive: Normal Color, Dry, Warm Neurologic: positive: Fully Oriented, Alert, Normal Mood/Affect, Normal Response , Motor Strength 5/5 ED Treatment Course - LABORATORY CBC & Chemistry Diagram: 06/25/17 09:47 06/25/17 09:47 Medical Decision Making - Medical Decision Making 06/25/17 10:00 A/P: This is a 22-year-old female with past medical history of acute gallstone pancreatitis who presents to emergency department with epigastric pain 5 days. She reports pain as "uncomfortable" and rates 5 out of 10 constant. She states the pain is significantly better than when she had the acute gallstone pancreatitis. Patient states she was admitted here from May 15 through May 21 and had an ERCP done with stent placement. At that time and one stone was removed, another stone was unable to be retrieved at that time. Patient was discharged follow-up at [facility] with Dr. Sapp to have other stone removed. Patient states she followed up on June 19 and had additional stone and stent removed at that time. Patient is also experiencing a bitemporal headache for 3-4 days which waxes and wanes worse in the morning and early evening. Patient reports nausea. She denies any fevers, chills, chest pain, shortness of breath, vomiting, dysuria, urinary frequency. Lungs clear to auscultation bilaterally. Respirations even and unlabored. Regular rate and rhythm. S1 and S2 present. No murmur, rub or gallop noted. Abdomen with normoactive bowel sounds. Tenderness to light palpation noted to the epigastrium and right upper quadrant. Patient mildly the suprapubic region. Patient currently on her menses. Differential diagnosis includes cholecystitis, acute pancreatitis, GERD, UTI, ectopic , menstruation I will perform CBC, CMP, lipase, PT INR, type and screen, urinalysis, urine , EKG, chest x-ray. I'll call Dr. Alas once all testing is been completed. *DC/Admit/Observation/Transfer Diagnosis at time of Disposition: Choledocholithiasis with obstruction Qualifiers: Cholangitis presence: without cholangitis Qualified Code(s): K80.51 - Calculus of bile duct without cholangitis or cholecystitis with obstruction - Discharge Dispostion Disposition: HOME Condition at time of disposition: Stable - Prescriptions - Referrals - Patient Instructions - Post Discharge Activity
[2017-06-25 10:03] LABS: URINE APPEARANCE CLEAR; URINE BILIRUBIN NEGATIVE (NEGATIVE); URINE BLOOD 1+ (NEGATIVE); URINE COLOR YELLOW; URINE GLUCOSE (UA) NEGATIVE (NEGATIVE); URINE KETONE NEGATIVE (NEGATIVE); URINE NITRITE NEGATIVE (NEGATIVE); URINE PROTEIN NEGATIVE (NEGATIVE); URINE UROBILINOGEN NEGATIVE mg/dL (0.2-1.0)
[2017-06-25 10:07] LABS: URINE LEUK ESTERASE 1+ (NEGATIVE)
[2017-06-25] MEDS ORDERED: METOCLOPRAMIDE HCL INJECTION 10 MG/2 ML VIAL IVPUSH ONE (10:08)
[2017-06-25 10:09] LABS: HCG,QUALITATIVE URINE NEGATIVE
[2017-06-25 10:16] LABS: INR 0.96 (0.82-1.09); PROTHROMBIN TIME (PATIENT) 10.9 SEC (9.98-11.88)
[2017-06-25 10:36] LABS: EPI CELLS RARE /HPF (FEW); URINE MUCUS RARE
--- NOTE | 2017-06-25 10:39 | PDOC ---
*Physical Exam - Vital Signs Last Vital Signs Temp Pulse Resp BP Pulse Ox 98 F 59 L 18 118/73 100 06/25/17 09:23 06/25/17 09:23 06/25/17 09:23 06/25/17 09:23 06/25/17 09:23 ED Treatment Course - LABORATORY CBC & Chemistry Diagram: 06/25/17 09:47 06/25/17 09:47 - ADDITIONAL ORDERS Additional order review: Laboratory Results 06/25/17 09:47 Urine Color Yellow Urine Appearance Clear Urine pH 6.0 Ur Specific [place] 1.019 Urine Protein Negative Urine Glucose (UA) Negative Urine Ketones Negative Urine Blood 1+ H Urine Nitrite Negative Urine Bilirubin Negative Urine Urobilinogen Negative Ur Leukocyte Esterase 1+ H Urine WBC (Auto) 15 Urine RBC (Auto) 1 Ur Epithelial Cells Rare Urine Mucus Rare Urine HCG, Qual Negative 06/25/17 09:47 RBC 4.90 MCV 90.6 MCHC 32.3 RDW 15.2 MPV 9.4 Neutrophils % 50.4 D Lymphocytes % 39.0 D Monocytes % 7.5 Eosinophils % 2.1 Basophils % 1.0 Medical Decision Making - Medical Decision Making 06/25/17 10:38 Patient seen and evaluated with the nurse practitioner. I agree with the overall evaluation, assessment, and management with the following summary of visit: 22-year-old female with history of cholelithiasis, located by pancreatitis presents with persistent pain and cholecystectomy. Admitted to Dr. Alas, scheduled for OR *DC/Admit/Observation/Transfer Diagnosis at time of Disposition: Choledocholithiasis with obstruction Qualifiers: Cholangitis presence: without cholangitis Qualified Code(s): K80.51 - Calculus of bile duct without cholangitis or cholecystitis with obstruction - Discharge Dispostion Admit: Yes Decision to Admit order Date/Time: Decision to Admit Order Category Date Time Status Decision to Admit to Hospital Routine Admission 06/25/17 09:59 Active - Referrals - Patient Instructions - Post Discharge Activity
[2017-06-25 10:46] LABS: ALBUMIN 4.1 g/dl (3.4-5.0); ANION GAP 8 (8-16); BLOOD UREA NITROGEN 12 mg/dL (7-18); CHLORIDE 104 mmol/L (98-107); CO2 28 mmol/L (21-32); CREATININE 0.9 mg/dL (0.55-1.02); GLUCOSE,RANDOM 78 mg/dL (74-106); LIPASE 129 U/L (73-393); POTASSIUM 3.9 mmol/L (3.5-5.1); SGOT/AST 17 U/L (15-37); SGPT/ALT 24 U/L (12-78); SODIUM 140 mmol/L (136-145)
[2017-06-25 10:48] LABS: ALK PHOS 40 U/L (45-117); BILIRUBIN,TOTAL 0.6 mg/dL (0.2-1.0); TOT PROT 7.4 g/dl (6.4-8.2)
[2017-06-25] MEDS ORDERED: HYDROmorphone HCL CARPU-JECT 2 MG/1 ML DISP.SYRIN IVPB PRN (10:52)
[2017-06-25] MEDS ORDERED: INDOCYANINE GREEN 25 MG/10 ML VIAL IVPUSH ONE ×3 (13:07→13:33)
[2017-06-25] MEDS ORDERED: ROCURONIUM BROMIDE 50 MG/5 ML VIAL ONE (13:26)
[2017-06-25] MEDS ORDERED: MIDAZOLAM HCL 2 MG/2 ML SINGLE DOSE VIAL ONE (13:26)
[2017-06-25] MEDS ORDERED: LIDOCAINE HCL/PF 2% SDV 5ML VIAL ONE (13:26)
[2017-06-25] MEDS ORDERED: PROPOFOL 20 ML ONE (13:26)
[2017-06-25] MEDS ORDERED: ceFAZolin SODIUM 1 GM VIAL ONE (13:57)
[2017-06-25] MEDS ORDERED: ceFAZolin SODIUM 1 GM VIAL IVPB ONE (13:58)
[2017-06-25] MEDS ORDERED: DEXAMETHASONE SOD PHOSPHATE 4 MG/1 ML VIAL ONE (14:21)
[2017-06-25] MEDS ORDERED: GLYCOPYRROLATE 0.2 MG/1 ML VIAL ONE (14:48)
[2017-06-25] MEDS ORDERED: NEOSTIGMINE METHYLSULFATE 0.5 MG/ML - 10 ML MDV ONE (14:48)
[2017-06-25] MEDS ORDERED: KETOROLAC TROMETHAMINE 30 MG/1 ML VIAL ONE (14:51)
--- NOTE | 2017-06-25 15:06 | HP ---
Admitting History and Physical - Admission Chief Complaint: Abdominal pain History of Present Illness: 22 female with prior episode of biliary pancreatitis S/P sphincterotomy and stent No w with recurrent abdominal pain History Source: Patient Limitations to Obtaining History: No Limitations - Past Medical History ...LMP: 06/25/16 ...: No - Smoking History Smoking history: Never smoked Have you smoked in the past 12 months: No - Alcohol/Substance Use Hx Alcohol Use: No Home Medications - Allergies Allergies/Adverse Reactions: Allergies Allergy/AdvReac Type Severity Reaction Status Date / Time No Known Allergies Allergy Unverified 05/15/17 21:58 - Home Medications Home Medications: Ambulatory Orders Biotin DAILY 06/25/17 Controll Pill DAILY 06/25/17 Docusate Sodium [Colace -] 100 mg PO TID #90 capsule 06/25/17 Oxycodone HCl/Acetaminophen [Percocet 5-325 mg Tablet] 1 - 2 tab PO Q6H #28 tab MDD 4 06/25/17 Vitamin B12 DAILY 06/25/17 Family Disease History - Family Disease History Family Disease History: Other: Mother (gallstones ) Review of Systems - Review of Systems Constitutional: denies: Chills, Fever Neck: reports: No Symptoms Cardiovascular: denies: Chest Pain Respiratory: denies: Cough Gastrointestinal: reports: Abdominal Pain Neurological: denies: Change in LOC Pain Intensity: 3 Physical Examination Vital Signs: Vital Signs Temperature 97.9 F 06/25/17 10:43 Pulse Rate 45 L 06/25/17 10:43 Respiratory Rate 16 06/25/17 10:43 Blood Pressure 94/59 06/25/17 10:43 O2 Sat by Pulse Oximetry (%) 100 06/25/17 10:43 Constitutional: Yes: Calm Neck: Yes: WNL Cardiovascular: Yes: Regular Rate and Rhythm Respiratory: Yes: CTA Bilaterally Gastrointestinal: Yes: Soft, Tenderness, Epigastrium Neurological: Yes: Alert, Oriented Labs: CBC, BMP 06/25/17 09:47 06/25/17 09:47 Problem List - Problems (1) Cholecystitis Code(s): K81.9 - CHOLECYSTITIS, UNSPECIFIED (2) Acute cholecystitis Code(s): K81.0 - ACUTE CHOLECYSTITIS (3) Choledocholithiasis with obstruction Code(s): K80.51 - CALCULUS OF BILE DUCT W/O CHOLANGITIS OR CHOLECYST W OBST Qualifiers: Cholangitis presence: without cholangitis Qualified Code(s): K80.51 - Calculus of bile duct without cholangitis or cholecystitis with obstruction (4) Abdominal pain Code(s): R10.9 - UNSPECIFIED ABDOMINAL PAIN Qualifiers: Abdominal location: epigastric Qualified Code(s): R10.13 - Epigastric pain Assessment/Plan Robotic possible open cholecystectomy Understands risks and benefits and agrees
--- NOTE | 2017-06-25 15:07 | OP ---
Operative Note - Note: Operative Date: 06/25/17 Pre-Operative Diagnosis: Acute cholecystitis. History of sphincterotomt, stent , choledocholithiasis and pancreatitis Operation: Robotic cholecystectomy Post-Operative Diagnosis: Same as Pre-op Surgeon: Dario Alas Sped Teacher: Jagruti Peralta Anesthesia: General Specimens Removed: Gallbladder Estimated Blood Loss (mls): 5 Operative Report Dictated: Yes
--- NOTE | 2017-06-25 15:25 | SURG ---
Surgery Scaffolder Note Scaffolder: Jagruti Peralta PA-C Date of Service: 06/25/17 Diagnosis: Acute cholecystitis. History of sphincterotomt, stent, choledocholithiasis and pancreatitis Procedure: Robotic cholecystectomy I was present for the entirety of the operative procedure. For further detail, please refer to operative report. Visit type - Case Type Case Type: Scheduled Admission - Emergency Emergency Visit: Yes Care time: The patient presented to the Emergency Department on the above date and was hospitalized for further evaluation of their emergent condition. - New patient This patient is new to me today: Yes Date on this admission: 06/25/17
[2017-06-25] MEDS ORDERED: ONDANSETRON 4 MG/2 ML VIAL IVPUSH PRN (15:26)
[2017-06-25] MEDS ORDERED: oxyCODONE HCL 5 MG TABLET PO PRN (15:26)
[2017-06-25] MEDS ORDERED: ACETAMINOPHEN 500 MG TABLET (FP) PO PRN (15:26)
--- NOTE | 2017-06-25 15:51 | SPEC ---
DATE OF OPERATION: 06/25/2017 SURGEON: Georgia Alas MD OPERATOR ELECTRONIC WARFARE: KRISTEN Brown. PREOPERATIVE DIAGNOSIS: Acute cholecystitis. POSTOPERATIVE DIAGNOSIS: Acute cholecystitis. PROCEDURE: Robotic cholecystectomy. SPECIMEN: Galbladder. ESTIMATED BLOOD LOSS: 5 mL. DRAINS: None. ANESTHESIA: GET. REASON FOR THE PROCEDURE: This is a 22-year-old female who has had a case of an acute cholecystitis and biliary pancreatitis in the past. She had undergone sphincterotomy, stent, and stone removal but presented to the emergency room with abdominal pain and another attack. Because of this she was consented for robotic cholecystectomy. RISKS AND BENEFITS: The risks and benefits of a Robotic laparoscopic, possible open cholecystectomy were explained. These included bleeding, infection, hernia, NC, DVT, PE, injury to surrounding structures including the liver, colon, bowel, bile ducts, vessel injury, nerve injury, bile leak, and retained stones as some of the possible complications. The patient understood and signed informed consent. DESCRIPTION OF PROCEDURE: The patient was placed supine on the operating room table. The patient underwent general endotracheal intubation. The abdomen was prepped and draped in the usual sterile fashion. Time-out was performed. A periumbilical incision was made, and entrance into the abdominal cavity was attained using an 8-mm robotic trocar under direct visualization with the laparoscope. Pneumoperitoneum was established. Subsequently, an 8-mm robotic trocar was placed in the left lateral abdominal wall, and two 8-mm robotic trocars were placed in the right abdominal wall. The patient was placed in reverse Trendelenburg, [id number] position. The robot was brought over the field and docked. Dissection was performed at the console. The gallbladder was retracted cephalad and laterally. Any adherent omentum was carefully freed and dissected. The peritoneum was dissected and opened. The cystic duct followed by the cystic artery were carefully dissected. Firefly technology was used to confirm anatomy. At this point, the cystic duct followed by the cystic artery was clipped and transected. The gallbladder was removed off the liver bed using electrocautery. Hemostasis was achieved using electrocautery. The gallbladder was placed in an EndoCatch bag. Copious irrigation and suction were performed until clear. The gallbladder was removed from the abdominal cavity and sent off the field. All robotic instruments were removed. The robot was undocked and removed from the field. The fascia at the gallbladder extraction site was closed using a 0 Vicryl suture. All incision sites were irrigated and Marcaine was injected. Hemostasis of the incision sites was noted. All incision sites were closed using 4-0 Biosyn. Sterile dressings were applied. The patient tolerated the procedure well and was transferred to the recovery room in stable condition. GEORGIA ALAS M.D. WILIAN/[id number]
[2017-06-25] MEDS ORDERED: ACETAMINOPHEN INJECTION 100 ML IVPB ONE (16:33)
[2017-06-25] MEDS ORDERED: oxyCODONE HCL 5 MG TABLET ONE ×2 (17:41→18:17)
[2017-06-25 19:14] VITALS: BP 106/65; PULSE 46
[2017-06-25 19:47] VITALS: TEMP 97.6
--- NOTE | 2017-06-28 12:31 | PATH ---
Surgical Pathology Report Patient Name: BARRON CELESTE [facility]. Rec. #: [id number] /Age/Gender: 1995 (Age: 22) / F Account: [id number] Location: AMBULATORY SURG Taken: 06/25/2017 Received: 06/26/2017 Reported: 06/28/2017 Physicians: Dario Alas M.D. Specimen(s) Received GALLBLADDER Clinical History Cholecystitis, cholelithiasis Final Diagnosis GALLBLADDER, ROBOTIC LAPAROSCOPIC CHOLECYSTECTOMY: ACUTE AND CHRONIC CHOLECYSTITIS. Electronically Signed Kassy Mendoza M.D. Gross Description Received in formalin, labeled "gallbladder," is a 6.5 x 2.3 x 2.3 cm. gallbladder with a 0.2 cm. in length portion of cystic duct attached. The outer surface is kelly terrazas and varies from smooth to shaggy. The lumen contains green, tenacious bile. No choleliths are identified within the lumen or within the container. The mucosa is green and velvety. The wall of the gallbladder averages 0.1 cm. in thickness. Fitter Mechanic sections are submitted in one cassette. /06/26/2017 saudi06/26/2017
== END 2017-06-25 20:00 | disposition home or self-care (01) ==
LOC: JER 08:53 → JASUSAT 09:59
PROVIDERS: ATTEND Surgery
PROC: 8E0W4CZ Robotic Assisted Procedure of Trunk Region, Percutaneous Endoscopic Approach (ICD-10-PCS; 2017-06-25)
PROC: 0FT44ZZ Resection of Gallbladder, Percutaneous Endoscopic Approach (ICD-10-PCS; principal; 2017-06-25 12:00)
DX: K81.0 Acute cholecystitis (principal)
CPT/HCPCS: 47562; S2900; 36415; 80053; 81003; 81015; 83690; 84703; 85025; 85610; 86850; 86900; 86901; 88304-TC; 94760; 99283-25